=== PATIENT | male | born 1950 | race Caucasian/White ===

== ENCOUNTER → 2018-03-26 11:00 | Outpatient (CLI) | payer OTHER, SELFPAY | PROVIDERS: PCP Family Medicine; Visit Provider Urology | DX: L72.3 Sebaceous cyst (principal); I10 Essential (primary) hypertension | CPT/HCPCS: 99213 ==

== ENCOUNTER 2018-04-16 08:26 | Day surgery (SDC) | payer OTHER, SELFPAY ==
[2018-04-16 08:33] VITALS: BP 144/74; PULSE 72; RESP 16; TEMP 36; O2SAT 99
[2018-04-16] MEDS: Lactated Ringers 1,000 ML 400 ML IV (10:05)
[2018-04-16] MEDS: Lidocaine 1% Pres-Free 5 ML VIAL (10:18)
--- NOTE | 2018-04-16 10:23 | SOFT_PTH ---
PATIENT: Deng Pandya LOC: [facility] U#:[id number] AGE/SX: 68/M ROOM: RE04/16/[address]: Champ Givens MD : 1950 BED: DIS: 04/16/2018 SPEC #: [id number] RECD: 04/16/18 12:23 STATUS: TAHIRA REQ #: [id number] DAVID: 04/16/18 10:[address]: Champ Givens DEPT: Surgical Specimen RECD BY: Julia Jaimes ENTERED: 04/16/18 12:25 SP TYPE: SOFT OTHR DR: Jax Antony Tissues: 1 - SOFT TISSUE [facility] [place] [facility] [place] Procedures: GROSS AND MICRO LEVEL 3 Comments: [id number]
[2018-04-16 10:38] VITALS: BP 143/86; PULSE 79; RESP 16; TEMP 35.2; O2SAT 99
[2018-04-16 11:04] VITALS: BP 156/82; PULSE 74; RESP 16; TEMP 35.5; O2SAT 98
--- NOTE | 2018-04-16 13:10 | ROE_ITS ---
REPORT OF OPERATIVE PROCEDURE DATE OF PROCEDURE April 16, 2018 PREOPERATIVE DIAGNOSIS Sebaceous cyst on the scrotum. POSTOPERATIVE DIAGNOSIS Sebaceous cyst on the scrotum. PROCEDURE Excision of sebaceous cyst on scrotum. SURGEON Champ Givens M.D. ANESTHESIA MAC with local. COMPLICATIONS None. HISTORY This is a 68-year-old gentleman who has a history of a painless mass on the right hemiscrotum. On exa mination, the mass is mobile and whitish in color. It is clinically suspicious for a sebaceous cyst. He is bothered by this lesion and requests excision. OPERATIVE REPORT The patient was brought to the Operating Room on April 16, 2018. He was placed in the supine positio n. He was given Monitored Anesthesia Care. His genitalia was then prepped and draped. A perilesional field block was performed using 1% Xylocaine without epinephrine. A circumferential in cision was made around the visible lesion. A plane was developed completely around the lesion and it was removed in its entirety. We performed the dissection using both sharp and blunt dissection with the Metzenbaum scissors. The lesion was then sent to pathology for permanent section. The base of the lesion was cauterized us ing a handheld Bovie. The skin edges were reapproximated with simple interrupted 4-0 Chromic sutures. Dermabond was applied overtop of the suture line. The patient tolerated this procedure well with no complications. There was minimal blood loss. He was taken to the outpatient care area in stable condition.
== END 2018-04-16 11:40 | disposition home or self-care (01) ==
PROVIDERS: PCP Family Medicine; Visit Provider Urology
DX: L72.3 Sebaceous cyst (principal); I10 Essential (primary) hypertension
CPT/HCPCS: 11422; 88304; 88305; J0690

== ENCOUNTER → 2018-05-08 09:24 | Outpatient (BNVA) | payer OTHER, SELFPAY | PROVIDERS: PCP Family Medicine; Visit Provider Urology | DX: L72.3 Sebaceous cyst (principal); I10 Essential (primary) hypertension; Z48.816 Encounter for surgical aftercare following surgery on the genitourinary system | CPT/HCPCS: 99212 ==

== ENCOUNTER 2019-02-05 01:17 | Outpatient (CLI) | payer OTHER, SELFPAY ==
--- NOTE | 2019-02-05 14:00 | DI.CTLCSR_ITS ---
SYMPTOMS/DIAGNOSIS: TOBACCO ABUSE, F17.[address] FOR LUNG CANCER SCREENING: There are no prior comparison exams. The heart size is normal. Aortic calcification and coronary artery calcifications are seen. No pleural or pericardial effusions or adenopathy are present. Emphysematous changes are noted, greatest in the right upper lobe. There are a few tiny scattered calcifications consistent with granulomas. No suspicious pulmonary nodules are identified. IMPRESSION: Negative. Continued annual low dose screening CT is recommended. Lung-RAD Category: 1- Negative Lung- RAD Management of Findings: Continue annual LDCT screening in 12 months
== END 2019-02-05 01:37 ==
PROVIDERS: PCP Family Medicine; Visit Provider Family Medicine
DX: Z12.2 Encounter for screening for malignant neoplasm of respiratory organs (principal); F17.200 Nicotine dependence, unspecified, uncomplicated; J98.4 Other disorders of lung
CPT/HCPCS: G0297

== ENCOUNTER → 2019-05-24 09:25 | Outpatient (BNVA) | payer MEDICARE, OTHER, SELFPAY | PROVIDERS: PCP Family Medicine; Referring Provider Family Medicine; Visit Provider Physical Therapy Assistant | DX: Z12.11 Encounter for screening for malignant neoplasm of colon (principal); Z86.010 Personal history of colon polyps; I10 Essential (primary) hypertension ==

== ENCOUNTER 2019-06-21 11:25 | Day surgery (SDC) | payer OTHER, SELFPAY ==
--- NOTE | 2019-06-21 07:12 | W.COLOREPORT ---
Date of service: 06/21/19 Time of Service: 12:32 Colonoscopy Report Date of procedure: 06/21/19 Pre-op diagnosis general: Hx of colon polyps Post-op diagnosis procedure note: other (Colorectal polyps and diverticulosis) Procedure: Colonoscopy with polypectomy Surgeon: Luana Ledesma Anesthesia proc note operative: other (general/ ASA 2/Donal Salamanca CRNA) Estimated blood loss (mL): 3 Pathology: other (cecal polyp, ascending polyps x2 and sigmoid polyp x3) Complications: None Disposition: same day Indications: Mr. Pandya is a pleasant 69 year old male who was seen in the office for a follow-up colonoscopy. 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 Risks, benefits and complications have been reviewed. Complications include but are not limited to bleeding, pain, perforation, missed small lesion/polyp, sore throat, aspiration and adverse reaction to the medications. Questions were entertained and answered to their satisfaction and they wished to proceed. No guarantees were given or implied. Prep: Miralax/Dulcolax Procedure Start Time: 12:32 Procedure End Time: 13:18 Retraction Time: 37 minutes Findings: multiple small sessile polyps sigmoid diverticulosis Procedure Description: After informed consent was obtained the patient was taken to the procedure room and placed in a left decubitous position. Monitors were applied and a time out was done. The patients name, date of , procedure, allergies to medications and metal in their body was reviewed. The patient was then sedated. Once sedated and comfortable a rectal exam was done. External exam was normal. Internal exam revealed a normal sphincter tone and no palpable masses. The prostate felt smooth. The scope was then introduced and retro-flexed. No internal hemorrhoids, masses or polyps were identified. The scope was then advanced to the cecum without difficulty. The TI and appendiceal orifice were identified. The prep was adequate. The scope was then slowly retracted over 37 minutes back into the rectum. Polyps were removed with cold forceps in the cecum, ascending colon x2 and sigmoid colon x3. There was mild diverticulosis noted in the sigmoid colon as well. The scope was removed and the patient was woken up and taken back to Same day surgery in stable condition. The patient tolerated the procedure well and there were no immediate complications. Follow up: The patient should follow up in 3-5 years unless they develop changes in bowel habits or other new gastrointestinal complaints.
--- NOTE | 2019-06-21 07:13 | W.PM.DSUDISC ---
Discharge Plan Disposition Patient Disposition: HOME Condition: Good Discharge Details Reason For Visit: Colonoscopy/ Hx of polyps Attending Provider: Luana Ledesma Primary Care Provider: Jax Antony Home Meds and New Rx's Prescriptions: Continued Atorvastatin Calcium 10 MG tablet 10 mg PO DAILY RF: 0 amlodipine 10 mg tablet 5 mg PO DAILY RF: 0 Discontinued polyethylene glycol 3350 17 gram/dose powder 238 g PO ONCE Qty: 238 RF: 0 bisacodyl [Dulcolax (bisacodyl)] 5 mg tablet,delayed release (DR/EC) 5 mg PO ONCE Qty: 4 RF: 0 No Action aspirin [Aspirin Low Dose] 81 mg Tablet,Delayed Release (Dr/Ec) 81 mg PO DAILY RF: 0 Discharge Instructions Instructions: Colonoscopy (DC), Diverticulosis (DC), Colorectal Polyps (DC) Additional Instructions: Findings: polyps x6 Diverticulosis Follow up: 3-5 years Please call if you develop: fevers >101.5 Nausea or Vomiting Abdominal pain that is not transient DAY SURGERY UNIT POST ENDOSCOPY INSTRUCTIONS 1. Because there will be medication in your system for the next 24 hours, you may feel a little sleepy. Your coordination will be affected. Therefore: a. Do not drive or operate dangerous equipment for 24 hours. b. Do not drink alcohol beverages for 24 hours (not even beer). c. Plan to go home and rest for the day. 2. Generally there are no restrictions on your activity after a day or so has gone by, but you may feel a bit fatigued for a few days. 3 After you arrive home you may have a light meal and return to a normal diet as you can tolerate it without feeling sick to your stomach. 4. After surgery, you may feel pain or discomfort. This should be only transient, but if it persists please contact your doctor. 5. If there are any questions regarding the findings of your procedure, please feel free to contact your doctor. 6. If you are unable to contact your doctor with a problem, contact the hospital at [phone]. 7. Continue all your regular medications unless directed otherwise. I understand the above instructions and have no questions. Signature of Patient or Responsible Adult Escort Date/Time Name of Responsible Adult Escort Signature of Nurse Date/Time Activity:: Activity as Tolerated Diet:: As Tolerated Discharge Orders Discharge Orders: Discharge Order (Routine); Ordered 06/21/19 Ordered By: Luana Ledesma DS: Diagnosis Discharge Diagnosis (1) S/P colonoscopy: Status: Acute (2) Diverticulosis: Status: Acute (3) Colorectal polyps: Status: Acute
[2019-06-21 11:54] VITALS: BP 156/83; PULSE 88; RESP 18; TEMP 36.3; O2SAT 99
[2019-06-21] MEDS: Lactated Ringers 1,000 ML 80 ML IV (12:04)
--- NOTE | 2019-06-21 12:45 | BOWEL_PTH ---
PATIENT: Deng Pandya LOC: [facility] U#:[id number] AGE/SX: 69/M ROOM: RE06/21/[address]: Luana Ledesma MD : 1950 BED: DIS: 06/21/2019 SPEC #: [id number] RECD: 06/21/19 15:47 STATUS: TAHIRA REQ #: [id number] DAVID: 06/21/19 12:[address]: Luana Ledesma DEPT: Surgical Specimen RECD BY: Rosalind Merrill ENTERED: 06/21/19 15:48 SP TYPE: Bowel OTHR DR: Jax Antony Tissues: 1 - BIOPSY BOWEL 2 - BIOPSY BOWEL 3 - BIOPSY BOWEL Procedures: GROSS AND MICRO LEVEL 4 Comments: [id number]
[2019-06-21 14:00] VITALS: BP 142/81; PULSE 75; RESP 17; TEMP 36.3; O2SAT 100
== END 2019-06-21 14:20 | disposition home or self-care (01) ==
LOC: SUR 11:26
PROVIDERS: PCP Family Medicine; Visit Provider Surgery
PROC: 0DJD8ZZ Inspection of Lower Intestinal Tract, Via Natural or Artificial Opening Endoscopic (ICD-10-PCS; CPT 45378; principal; 2019-06-21 13:30)
DX: Z12.11 Encounter for screening for malignant neoplasm of colon (principal); Z86.010 Personal history of colon polyps; D12.0 Benign neoplasm of cecum; D12.2 Benign neoplasm of ascending colon; D12.5 Benign neoplasm of sigmoid colon; K57.30 Diverticulosis of large intestine without perforation or abscess without bleeding; I10 Essential (primary) hypertension
CPT/HCPCS: 45380; 88305

== ENCOUNTER 2020-02-08 10:45 | Outpatient (REF) | payer OTHER, SELFPAY ==
[2020-02-08 16:05] LABS: HCT 45.8 % (40.0-50.0); HGB 15.5 g/dL (13.5-17.5); Mean Corp. HGB Concentration 33.8 g/dL (32.0-36.0); Mean Corpuscular Hemoglobin 34.8 pg (27.0-33.0); Mean Corpuscular Volume 102.9 fL (80-95); Platelet Count 255 x1000/uL (130-400); RBC 4.45 m/cumm (4.50-6.00); RBC Distribution Width 12.7 % (11.8-14.1); White Blood Cell Count 9.85 k/cumm (4.4-10.8)
[2020-02-08 16:40] LABS: ALT 25 U/L (16-63); AST 38 U/L (15-37); Albumin 4.1 g/dL (3.4-5.0); Alkaline Phosphatase 99 U/L (46-116); Anion Gap 10.7 mmol/L (3-11); BUN 13 mg/dL (7-18); Bilirubin, Total 0.4 mg/dL (0.2-1.0); CO2 24.3 mmol/L (21.0-32.0); CREATININE 1.02 mg/dL (0.70-1.30); Calcium 9.1 mg/dL (8.5-10.1); Chloride 105 mmol/L (98-107); Glucose 91 mg/dL (74-106); Potassium 4.6 mmol/L (3.5-5.1); Sodium 140 mmol/L (136-145); Total Protein 7.8 g/dL (6.4-8.2)
== END 2020-02-08 11:05 ==
LOC: NCHCN 10:45
PROVIDERS: PCP Family Medicine; Visit Provider Family Medicine
DX: K74.60 Unspecified cirrhosis of liver (principal)
CPT/HCPCS: 80053; 85027

== ENCOUNTER 2020-02-10 01:57 | Outpatient (CLI) | payer OTHER, SELFPAY ==
--- NOTE | 2020-02-10 | DI.US_ITS ---
EXAM: US ABDOMEN CLINICAL HISTORY: HCC SCREENING, CIRRHOSIS OF LIVER, K74.60 TECHNIQUE: Ultrasound performed using standard protocol. COMPARISON: US AAA SCREENING from 03/27/2017 FINDINGS: The hepatic echotexture is noted to be mildly coarse, consistent with the patient's diagnosis of cirr hosis. No gross hepatomegaly or splenomegaly seen. No focal hepatic lesion identified. There are gallbladder polyps, no evidence cholelithiasis. Gallbladder wall thickness is within renetta l limits. Pancreas appears intact. Kidneys are unremarkable in appearance with no evidence of hydronephrosis or nephrolithiasis. IMPRESSION: No evidence of acute process. No focal hepatic lesion identified in a patient with reported hepatic cirrhosis. DATA REPOSITORY:
== END 2020-02-10 02:17 ==
PROVIDERS: PCP Family Medicine; Visit Provider Family Medicine
DX: K74.60 Unspecified cirrhosis of liver (principal); K82.4 Cholesterolosis of gallbladder
CPT/HCPCS: 76700

== ENCOUNTER → 2020-04-07 08:50 | Outpatient (BNVA) | payer OTHER, SELFPAY | PROVIDERS: PCP Family Medicine; Referring Provider Family Medicine; Visit Provider Physical Therapy Assistant | DX: Z12.11 Encounter for screening for malignant neoplasm of colon (principal); Z86.010 Personal history of colon polyps ==

== ENCOUNTER 2020-04-20 08:43 | Day surgery (SDC) | payer OTHER, SELFPAY ==
[2020-04-20 09:06] VITALS: BP 141/81; PULSE 90; RESP 16; TEMP 36.6; O2SAT 98
--- NOTE | 2020-04-20 09:26 | W.COLOREPORT ---
Date of service: 04/20/20 Time of Service: 09:26 Colonoscopy Report Date of procedure: 04/20/20 Pre-op diagnosis general: A. polyps Post-op diagnosis procedure note: other Procedure: CE. cold polypectomy x 3 hot snare x1 Surgeon: Natalie Dempsey Anesthesia proc note operative: MAC Estimated blood loss (mL): 1 Pathology: other Complications: None Disposition: same day Prep: Miralax/Dulcolax Retraction Time: 15 mins Procedure Description: After informed consent was obtained the patient was taken to the procedure room and placed in a left decubitous position. Monitors were applied and a time out was done. The patients name, date of , procedure, allergies to medications and metal in their body was reviewed. The patient was then sedated. Once sedated and comfortable a rectal exam was done. External exam was normal. Internal exam revealed a normal sphincter tone and no palpable masses. The prostate nl. The scope was then introduced and retrofelexed. Grade I internal hemorrhoids were identified. The scope was then advanced to the cecum w/out difficulty. The TI and appendiceal orifice were identified. The prep was good. The scope was then slowly retracted over 15 minutes back into the rectum. Polyps were removed at 70 cm with a cold biting forcep. 40 cm with a cold biting forcep. The rectum with cold biting forcep. These are all less than 5 mm. There is 1 cm polyp at 20 cm and this is removed with a hot snare. This polyp was on a long stalk. Last colonoscopy was all specimens are retrieved and no bleeding is noted. There is moderate diverticular disease confined to the sigmoid colon. There are no signs of active bleeding or infection at this time. Mucosa is otherwise pink and healthy. The scope was removed and the patient was woken up and taken back to Same day surgery in stable condition. The patient tolerated the procedure well and there were no immediate complications. Follow up: The patient should follow up in 5 years -path pending, unless they develop changes in bowel habits or other new gastrointestinal complaints.
[2020-04-20] MEDS: Lactated Ringers 1,000 ML 80 ML IV (09:28)
--- NOTE | 2020-04-20 11:39 | BOWEL_PTH ---
PATIENT: Deng Pandya LOC: [facility] U#:[id number] AGE/SX: 70/M ROOM: RE04/20/[address]: Natalie Dempsey : 1950 BED: DIS: 04/20/2020 SPEC #: [id number] RECD: 04/20/20 12:29 STATUS: TAHIRA REQ #: [id number] DAVID: 04/20/20 11:[address]: Natalie Dempsey DEPT: Surgical Specimen RECD BY: Vivian Rowley ENTERED: 04/20/20 12:33 SP TYPE: Bowel OTHR DR: Jax Antony Tissues: 1 - BIOPSY BOWEL 2 - BIOPSY BOWEL 3 - BIOPSY BOWEL 4 - BIOPSY BOWEL Procedures: GROSS AND MICRO LEVEL 4 Comments: [id number]
[2020-04-20 12:32] VITALS: BP 129/58; PULSE 81; RESP 20; TEMP 36.7; O2SAT 96
--- NOTE | 2020-04-20 12:57 | PDOC.DSDIS_ITS ---
Discharge Plan Disposition Patient Disposition: HOME Condition: Good Discharge Details Reason For Visit: colon scope Attending Provider: Natalie Dempsey Primary Care Provider: Jax Antony Home Meds and New Rx's Prescriptions: Discontinued polyethylene glycol 3350 17 gram/dose powder 238 g PO ONCE Qty: 238 RF: 0 bisacodyl [Dulcolax (bisacodyl)] 5 mg tablet,delayed release (DR/EC) 5 mg PO ONCE Qty: 4 RF: 0 No Action losartan-hydrochlorothiazide 50-12.5 mg tablet 1 tab PO DAILY RF: 0 Discharge Instructions Additional Instructions: Findings: diverticula-moderate in sigmoid colon x4 polyps Follow up: We will send a letter with results pathology. Repeat colonoscopy in 3 to 5 years. Please call if you develop: fevers >101.5 Nausea or Vomiting Abdominal pain that is not transient DAY SURGERY UNIT POST COLONOSCOPY INSTRUCTIONS 1. Because there will be medication in your system for the next 24 hours, you may feel a little sleepy. Your coordination will be affected. Therefore: a. Do not drive or operate dangerous equipment for 24 hours. b. Do not drink alcohol beverages for 24 hours (not even beer). c. Plan to go home and rest for the day. 2. Generally there are no restrictions on your activity after a day or so has gone by, but you may feel a bit fatigued for a few days. 3 After you arrive home you may have a light meal and return to a normal diet as you can tolerate it without feeling sick to your stomach. 4. After surgery, you may feel pain or discomfort. This should be only transient, but if it persists please contact your doctor. 5. If there are any questions regarding the findings of your procedure, please feel free to contact your doctor. 6. If you are unable to contact your doctor with a problem, contact the hospital at [phone]. 7. Continue all your regular medications unless directed otherwise. I understand the above instructions and have no questions. Signature of Patient or Responsible Adult Escort Date/Time Name of Responsible Adult Escort Signature of Nurse Date/Time DIVERTICULAR DISEASE OVERVIEW ? A diverticulum is a pouch-like structure that can form through points of weakness in the muscular wall of the colon (ie, at points where blood vessels pass through the wall). Diverticulosis affects men and women equally. The risk of diverticular disease increases with age. It occurs throughout the world but is seen more commonly in developed countries. WHAT IS DIVERTICULAR DISEASE? Diverticulosis ? Diverticulosis merely describes the presence of diverticula. Diverticulosis is often found during a test done for other reasons, such as flexible sigmoidoscopy, colonoscopy, or barium enema. Most people with diverticulosis have no symptoms and will remain symptom free for the rest of their lives. A person with diverticulosis may have diverticulitis, or diverticular bleeding. Diverticulitis ? Inflammation of a diverticulum (diverticulitis) occurs when there is thinning and breakdown of the diverticular wall. This may be caused by increased pressure within the colon or by hardened particles of stool, which can become lodged within the diverticulum. The symptoms of diverticulitis depend upon the degree of inflammation present. The most common symptom is pain in the left lower abdomen. Other symptoms can include nausea and vomiting, constipation, diarrhea, and urinary symptoms such as pain or burning when urinating or the frequent need to urinate. Diverticulitis is divided into simple and complicated forms. ?Simple diverticulitis, which accounts for 75 percent of cases, is not associated with complications and typically responds to medical treatment without surgery. ?Complicated diverticulitis occurs in 25 percent of cases and usually requires surgery. Complications associated with diverticulitis can include the following: ?Abscess ? a localized collection of pus ?Fistula ? an abnormal tract between two areas that are not normally connected (eg, bowel and bladder) ?Obstruction ? a blockage of the colon ?Peritonitis ? infection involving the space around the abdominal organ ?Sepsis ? overwhelming body-wide infection that can lead to failure of multiple organs Diverticular bleeding ? Diverticular bleeding occurs when a small artery located within a diverticulum is eroded and bleeds into the colon. Diverticular bleeding usually causes painless bleeding from the rectum. In approximately 50 percent of cases, the person will see maroon or bright red blood with bowel movements. Is bleeding with a bowel movement normal? ? It is not normal to see blood in a bowel movement; this can be a sign of several conditions, most of which are not serious (eg, hemorrhoids) but some of which are serious and require immediate treatment. Anyone who sees blood after a bowel movement should consult with their healthcare provider to determine if further testing or evaluation is needed. DIVERTICULOSIS AND DIVERTICULITIS DIAGNOSIS ? Diverticulosis is often found during tests performed for other reasons. ?Barium enema ? This is an x-ray study that uses barium in an enema to view the outline of the lower intestinal tract. This is an older test and has been largely replaced by computed tomography (CT) scan. ?Flexible sigmoidoscopy ? This is an examination of the inside of the sigmoid colon with a thin, flexible tube that contains a camera. ?Colonoscopy ? This is an examination of the inside of the entire colon. ?CT scan ? A CT scan is often used to diagnose diverticulitis and its complications. If diverticulitis (not just diverticulosis) is suspected, the above three tests should not be used because of the risk of perforation. TREATMENT Diverticulosis ? People with diverticulosis who do not have symptoms do not require treatment. However, most clinicians recommend increasing fiber in the diet, which can help to bulk the stools and possibly prevent the development of new diverticula, diverticulitis, or diverticular bleeding. Fiber is not proven to prevent these conditions in all patients but may help to control recurrent episodes in some. Increase fiber ? Fruits and vegetables are a good source of fiber. Fiber content of packaged foods can be calculated by reading the nutrition label. Seeds and nuts ? Patients with diverticular disease have historically been advised to avoid whole pieces of fiber (such as seeds, corn, and nuts) because of concern that these foods could cause an episode of diverticulitis. However, this belief is completely unproven. We do not suggest that patients with diverticulosis avoid seeds, corn, or nuts. Diverticulitis ? Treatment of diverticulitis depends upon how severe your symp toms are. Home treatment ? If you have mild symptoms of diverticulitis (mild abdominal pain, usually left lower abdomen), you can be treated at home with a clear liquid diet and oral antibiotics. However, if you develop one or more of the following signs or symptoms, you should seek immediate medical attention: ?Temperature >100.1?F (38?C) ?Worsening or severe abdominal pain ?An inability to tolerate fluids Hospital treatment ? If you have moderate to severe symptoms, you may be hospitalized for treatment. During this time, you are not allowed to eat or drink; antibiotics and fluids are given into a vein. If you develop an abscess of the colon, you may require drainage of the abscess (usually performed by placing a drainage tube across the abdominal wall) or by surgically opening the affected area. Surgery ? If you develop a generalized infection in the abdomen (peritonitis), you will usually require an emergency operation. A two-part operation may be necessary in some cases. ?The first operation involves removal of the diseased colon and creation of a colostomy. A colostomy is an opening between the colon and the skin, where a bag is attached to collect waste from the intestine. The lower end of the colon is temporarily sewed closed to allow it to heal. ?Approximately three to six months later, a second operation is performed to reconnect the two parts of the colon and close the opening in the skin. You are then able to empty your bowels through the rectum. Sometimes patients require up to a year to recover from the first operation, depending on how sick they were. In non-emergency situations, the diseased area of the colon can be removed and the two ends of the colon can be reconnected in one operation, without the need for a colostomy. Surgery versus medical therapy ? An operation to remove the diseased area of the colon may be necessary if you do not improve with medical therapy. After an episode of uncomplicated diverticulitis, elective surgery is generally not required as the risk of another attack or requiring emergency surgery is low. However, patients with persistent symptoms attributable to diverticulitis, a history of complicated diverticulitis, or a compromised immune system should be evaluated for possible surgery to prevent another attack. In such patients, another attack has been associated with a higher risk of complications or . Of course, the decision will also depend in part upon your other medical conditions and ability to undergo surgery. In many cases, an elective operation can be performed laparoscopically, using small incisions, rather than the typical vertical (up and down) abdominal incision. Laparoscopic surgery usually allows you to recover more quickly and shortens the hospital stay. After diverticulitis resolves ? After an episode of diverticulitis resolves, if you have not had a recent colonoscopy, the entire length of the colon should be evaluated to determine the extent of disease and to rule out the presence of abnormal lesions such as polyps or cancer. Recommended tests include colonoscopy, barium enema and sigmoidoscopy, or CT colonography. Diverticular bleeding ? Most cases of diverticular bleeding resolve on their own. However, some people will need further testing or treatment to stop bleeding, which may include a colonoscopy, angiography (a treatment that blocks off the bleeding artery), bleeding scan, or surgery. DIVERTICULAR DISEASE PROGNOSIS Diverticulosis ? Over time, diverticulosis may cause no problems or it may cause episodes of bleeding and/or diverticulitis. Approximately 15 to 25 percent of people with diverticulosis will develop diverticulitis, while 5 to 15 percent will develop diverticular bleeding. Diverticulitis ? Approximately 85 percent of people with uncomplicated dive rticulitis will respond to medical treatment, while approximately 15 percent of patients will need an operation. After successful treatment for a first attack of diverticulitis, one-third of patients will remain asymptomatic, one-third will have episodic cramps without diverticulitis, and one-third will go on to have a second attack of diverticulitis. The prognosis tends to remain similar following a second attack of diverticulitis. Only 10 percent of people remain symptom-free after a second attack. Subsequent attacks tend to be of similar severity, not increasing in severity as previously believed. High Fiber Diet What is Dietary Fiber? All fiber comes from plants, bushes, ayan or trees. Of course, the ones that we eat provide us with fruits, vegetables and grains. There are many different types of fiber but the three that are most important to the health of the body are: Insoluble Fiber This fiber does not dissolve in water, nor is it fermented by the bacteria residing in the colon. Rather, it retains water and in so doing, helps to promote a larger, bulkier and more regular bowel activity. This, in turn, may be important in preventing disorder such as diverticulosis and hemorrhoids, and in sweeping out certain toxins and cancer causing carcinogens. Sources of insoluble fiber are: ? whole grain wheat and other whole grains ? corn bran, including popcorn, unflavored and unsweetened ? nuts and seeds ? potatoes and the skins from most fruits from trees such as apples, bananas and avocados ? many green vegetables such as green beans, zucchini, celery and cauliflower ? some fruit plants such as tomatoes and kiwi Soluble Fiber These fibers are fermented or used by the colon bacteria as a food source or nourishment. When these good bacteria grow and thrive, many health benefits occur in both the colon and the body. Soluble fiber is present in some degree in most edible plant foods, but the ones with the most soluble fiber include: ? legumes such as peas and most beans, including soybeans ? oats, rye and barley ? many fruits such as berries, plums, apples bananas and pears ? certain vegetables such as broccoli and carrots ? most root vegetables ? psyllium husk supplement products Prebiotic Soluble Fiber These are relatively newly discovered soluble plant fibers. The technical name for this fiber is inulin or fructan. When these soluble fibers are fermented by the good colon bacteria, some further significant health benefits have been shown to occur by research in many medical centers. These soluble prebiotic fibers occur in significant amounts in: ? asparagus ? yams ? onions ? garlic ? bananas ? leeks ? agave ? chicory and other root vegetables such as [place] artichokes ? wheat, rye and barley (smaller amounts) Benefits of a High Fiber Diet The health benefits of a high fiber diet, consumed on a regular basis and reaching recommended amounts (below), are now fairly well-defined. There are some additional benefits in the early research stage with the prebiotic soluble fibers. What is now known regarding a high fiber diet include: Bowel Regularity A high fiber diet promotes regularity with a softer, bulkier and regular stool pattern. This decreases the chance of hemorrhoids, diverticulosis and perhaps colon cancer. Cholesterol and Reduced Triglycerides The soluble fibers are the ones that will reduce cholesterol levels when used on a regular basis. Psyllium husk and prebiotic soluble fiber will also reduce cholesterol. They may also reduce the incidence of coronary heart disease. Oats, flax seeds and legumes or beans are the recommended fibers. Colon Polyps and Cancer It is still not certain if a high fiber diet helps prevent colon cancer. Considerable research suggests that this may occur. Certainly it makes sense to increase regularity and so speed the movement of cancer causing carcinogens through the bowel. In addition, reducing a heavy meat diet reduces the bile flow from the liver in a favorable way. This, too, reduces the amount of carcinogens that reach and are manufactured in the colon. Finally, a high fiber diet, including prebiotic soluble fiber, increases the integrity and health of the wall of the colon. The risk of cancer may be reduced. Colon Wall Integrity A high fiber diet changes the bacterial makeup of the colon toward a more favorable balance. For instance, it is known that those people with obesity, diabetes type 2 and inflammatory bowel disease have a predominance of bad bacteria in the colon. This, in turn, may render the bowel wall weak and allow bacteria and, indeed, even toxins to seep through. A high fiber diet with a modest reduction in animal and meat products may return the bacterial makeup to a more positive balance. This, in particular, has been seen when the soluble fiber prebiotics are added to the diet. Blood Sugar Soluble fiber such as in legumes (beans), oats and in prebiotic fibers slows the absorption of blood sugar and so helps regulate the sugar in the blood. In soluble fiber on a regular basis is associated with reduced risk of type 2 diabetes. Weight Loss High fiber diets are more filling and give a sense of fullness sooner than an animal and meat based diet does. In addition, the soluble prebiotic fibers have been shown to turn off the hunger hormones produced in the wall of the gut and to increase the hormones that give a sense of fullness. Those hormones are made in the wall of the gut. New medical research has shown that the bacterial makeup in the colon in overweight people is abnormal to the extent that they manufacture and absorb almost twice the number of calories through the colon wall as do normals. Prebiotic fibers (below) will help change this hormonal balancein a favorable way. Bacteria and the Function of the Colon The colon finishes the digestive process. Hopefully, the waste products move through in a nice regular manner. Insoluble fibers help this process by retaining water and so producing a bulkier, softer stool, which is easy to pass. The additional role of the colon is to provide a home for an enormous number of micro-organisms, mostly bacteria. Recent research has shown that there are over 1,000 species of bacteria with a total bacterial count ten times the number of cells in the body. These bacteria play a major role in keeping the colon wall itself healthy. In addition, these good bacteria produce a very strong immune system for the body. They significantly increase calcium absorption and bone density. They provide other documented benefits. It is the soluble fibers in the diet that are so effective in stimulating the growth of good colon bacteria. How Much is Enough? The amount of fiber in food is measured in grams. National nutritional authorities recommend the following amounts of dietary fiber daily. Under Age 50 Over Age 50 Men 38 grams 30 grams Women 25 grams 21 grams For a week or so, it is best to tally the amount of fiber you are consuming. Boxed and packaged foods will have the amount of fiber per serving on the nutrition label. Which Fibers and Which Foods are Best? As noted, healthy fiber is only found in plants. The three major categories are whole grains, fruits and vegetables. Whole Grains Wheat, oats, barley, wild or brown rice, amaranth, buckwheat, bulgur, corn, millet, quinoa, rye, sorghum, teff and triticals. By far, wheat, oats and wild or brown rice are most common. Always buy whole grain products. White bread, baked goods and rolls almost always are made from wheat flour. Wheat flour is white because most of the fiber, vitamins and other nutrients have been removed. Try not buy enriched grains. What this means is that simple white flour has had vitamins added to it by the gas plumber. The word, enriched, implies a good and healthy product. On the contrary, enriched means that most of the fiber has been removed and a few vitamins added. Fruits Fruits come from trees such as apple and pear or from bushes or ayan. You should eat a wide variety of fruits, preferably with every meal. In many cases, the skin of a fruit such as apple will contain much of the insoluble fiber while the pulp contains most of the soluble fiber. To the extent possible, buy organic fruits as these will have little or no pesticides. Always wash fruit. Vegetables Eat a wide variety of vegetables. They should be a mainstay of lunch and dinners. Frozen vegetables retain as much nutrition and fiber as fresh vegetables. As with fruit, try to buy organic to reduce any residual pesticide ingestion. Wash fresh vegetables thoroughly. Cruciferous vegetables such as broccoli, [place] sprouts and cauliflower contain certain chemicals such as sulforaphane. This substance has very strong anti-cancer properties and should be eaten frequently. Legumes, Beans, Peas and Soybeans These vegetables have plenty of soluble fiber and should be part of a varied vegetable intake. Beans, in particular, contain a certain type of fiber that may lead to harmless gas or bloating. Nuts and Seeds These are rich sources of fiber and are a good substitute for sweets such as candies and baked sweet goods. While nuts and seeds are rich in fiber, they also contain vegetable fat and so can and do add calories. Read the Labels As noted, fresh and frozen foods are usually better. They have good nutrition and few, if any, chemicals added to them. When buying packaged foods and, in particular grains, look for three things: ? The first word on the label should be whole, such as whole wheat or whole grain. ? Check out the calories and the amount of fiber in a serving. ? How many and what other additives or chemicals are added. Fewer is always better. Do you know what each additive does? Some are added not for the benefit of the weight control lecturer but rather for manufacturers. These could and do include sugar, artificial flavor, chemicals to prevent oxidation and spoilage, emulsifiers to blend the product. You have to be a customer relations assistant. Fiber Facts, Nuggets and Pearls ? For breakfast you can easily get the day started well by using a high fiber, whole grain cereal. Check the labels. Add fruit such as blueberries and bananas. If you are an egg eater, use whole wheat or grain toast. Adding wheat germ gives you a good fiber kick. ? Always use whole grain or wheat with rolls and sandwiches. Does your fast food store not have them? Perhaps you look elsewhere. Eating an occasional black dias or veggie burger provides variety. ? Snacks should consist of fruit and/or nuts. While nuts are loaded with fiber, they are an energy rich food, meaning they have a lot of calories in a small packet. ? Fruit juices should contain pulp. Clear juices such as clear orange, pear or apple juice contain little fiber and have a lot of fructose. Prune juice is usually high in fiber. ? Homemade soups ? adding fresh or frozen vegetables to a chicken or vegetable stock is a good way to start homemade soup. ? Salads ? adding cooked and then chilled vegetables provide great flavoring to almost any salad. Remember, a de la cruz salad has lots of cooked corn in it. Small slices of apples or oranges and nuts such as chopped walnuts or sliced almonds always adds taste, variety and fiber to almost any salad. ? Fruit ? Try to eat fruit of some type with almost every meal. ? Rethink how you place the various foods on your dinner plate. Reducing the portions of the meat or animal food portion to the side with equal or more portions of vegetables, legumes and fruits portion always allows for more fiber. There was never anything magic about making the meat or animal food portion the main part of the dinner plate. Eating from smaller plates can, over time, trick your mind and assisted habit of using a dinner plate. Again, there is nothing magic in an 11, 12, or 13 inch dinner plate. Fiber Supplements There are a variety of fiber supplements available on the food or pharmacy shelves. Psyllium This soluble plant fiber has been used in [place] for over 2,000 years. It is a soluble fiber with mucilage in it. This acts to retain a lot of water and also is fermented by colon bacteria. When 7 grams a day are used, it does lower cholesterol. Metamucil in various forms is psyllium. Methyl Cellulose All the cellulose products come from finely ground wood chips which are then treated in a variety of ways such as boiling in acids. Methyl cellulose is an insoluble fiber which does dissolve in water. It is also an emulsifier, meaning it blends oils and water. Citrucel is methyl cellulose (MC). MC may not be appropriate for Crohn?s disease or ulcerative colitis as several medical studies have shown that certain emulsifiers dissolve the mucous lining of the colon in animals prone to Crohn?s disease. This then allows bacteria to invade the under lying tissue. Inulin Inulin is a soluble prebiotic fiber found in many foods and which are fermented mostly in the left side of the colon. It is available in a supplement as generic inulin and in Fiber Choice. Oligofructose FOS These are also prebiotic fibers. They are fermented very quickly in the right side of the colon. Prebiotin This product is a combination of oligofructose, which feeds the bacteria in the right side of the colon and inulin, which does the same in the left side of the colon. There seems to be a benefit for this particular formula based on medical research. Prebiotic Soluble Fiber These may be the healthiest of all the soluble fibers. They grow in many plants and have had a great deal of research done on them in the last 10-15 years. These fibers are found in asparagus, yams and other root vegetables such as chicory, garlic, onion, leeks and in smaller amounts in wheat. This research has shown the following: ? Increase in good and decrease in bad colon bacteria ? Increase calcium absorption and enhanced bone mass ? Enhanced immune system ? Appetite and weight control by changing the hormone appetite signals to the brain ? May decrease colon cancer incidence ? Reduce or correct a leaky colon Eating a wide variety of plant food up to the recommended amount will likely give you enough prebiotic fiber. Supplements such as Prebiotin can be added to the diet. Short Chain Fatty Acids (SCFA) Some rather remarkable research findings have shown that one of the benefits of ingesting a lot of soluble fiber, in particular the prebiotic ones, results in larger amounts of SCFAs in the colon. These SCFAs are made by the good bacteria in the colon such as Bifidobacter and Lactobacillus. These small molecules have been shown to do the following: ? Enhance the health and integrity of the colon wall ? Provide nourishment for the cells that actually line the colon ? Increases the acidity of the colon which is a very real health benefit ? Stabilize blood sugar for diabetics ? Reduce blood cholesterol and triglyceride ? Significantly enhance immunity ? May be a benefit for Crohn?s disease and ulcerative colitis patients Fiber and Gas Everyone has intestinal gas and that is a good thing. It means that bacteria, hopefully the good ones, are thriving. The normal amount of flatus passed each day depends on sex and what is eaten. The normal number of flatus is 10-20 times a day. When the bacteria that make intestinal gases are growing, it also means that other good bacteria are using the same fibers to grow and produce multiple health benefits, including the production of healthy short-chain fatty acids. These substances are produced quietly in the colon and produce many health-related outcomes. Soluble fiber should always be used in a gradual manner. If too much is consumed at any one time, then excess, but harmless, intestinal gas can occur. People with irritable bowel syndrome are particularly prone to bloating and mild cramping. In this instance, soluble fiber in the diet or supplement should be used in small doses and increased gradually. Finally, prebiotic fibers tend to cause the production of short-chain fatty acids which acidify the colon. This, in turn, reduces or stops the growth of bacteria that make the smelly hydrogen sulfide gases that produce noxious flatus. People who consume many vegetables with prebiotics or take a prebiotic fiber supplement often have non-odoriferous flatus. Fiber and Irritable Bowel Syndrome Irritable bowel syndrome (IBS) is one of the most common disorders of the lower digestive tract. The symptoms of IBS can be quite varied. They can be a mix of several symptoms such as constipation, diarrhea, crampy abdominal discomfort, bloating and gas. An attack of IBS can be triggered by emotional tension and anxiety, poor dietary habits and certain medications. It is now known that infections in the intestine can lead to long-term IBS symptoms. Increased amounts of fiber in the diet can help relieve the symptoms of irritable bowel syndrome by producing soft, bulky stools. This helps to normalize the time it takes for the stool to pass through the colon. Recent medical research with newer techniques has shown some surprising and dramatic findings for IBS patients. Specifically, there is a very significant and abnormal shift of bacteria from those that provide health benefits to those bad bacteria that we really do not want in the gut. The technical name for this bad group of bacteria is called Firmicutes. Along with this abnormal bacterial collection, there is a smoldering low-grade inflammation in the gut wall that may contribute to symptoms. The goal for IBS patients should be to gradually increase the soluble dietary fibers in the diet so as to promote the growth of good bacteria and so suppress the bad ones along with the associated inflammation. IBS patients need to be careful of the amount of soluble fiber they consume. The reason for this is that, while the good colon bacteria thrive on these fibers and produce health benefits, other gas-forming bacteria may generate excessive but harmless gas and subsequent bloating. Thus, soluble plant fibers or a dietary prebiotic supplement should be taken in small initial doses and then gradually increased to tolerance. Fiber and Colon Polyps/Cancer Colon cancer is a major health problem. This disease is most common in Western cultures. It is not seen very often in rural cultures where the diet is mostly plant based. Usually, colon cancer starts out as a colon polyp, a benign mushroom-shaped growth. In time it grows, and in some people it becomes cancerous. Colon cancer is usually always curable if polyps are removed when found or if surgery is performed at an early stage. It is now known that people can inherit the risk of developing colon cancer, but diet is important, too. As noted, there is a very low rate of colon cancer in residents of countries where grains are unprocessed and retain their fiber. It seems that in the Western world, cancer-containing agents (carcinogens) remain in contact with the colon wall for a longer time and in higher concentrations. So, a large bulky stool may act to dilute these carcinogens by moving them through the bowel more quickly. Less carcinogenic exposure to the colon may mean fewer colon polyps and less cancer. A very current review of the entire world?s literature on the effect of fiber on colon polyps and cancer prevention has shown rather clearly that for every 10 grams of fiber added to the diet, there is a 10% reduction in incidence of colon cancer. So the recommended 30 gram fiber diet would result in a 30% less chance of getting these tumors. There are also substances produced in the colon by the good bacteria that seem to retard certain pre-cancer factors from developing. They are called short- chain fatty acids (SCFA). See above for description of SCFAs. A high fiber diet increases these substances. So, the combination of dietary fiber and the production of short-chain fatty acids have a clear health benefit. Fiber and Diverticulosis Prolonged, vigorous contraction of the colon over a long period of time may result in diverticulosis. This increased pressure causes small and, eventually, larger ballooning pockets to form. These pockets by themselves cause no problem. However, sometimes they become infected (diverticulitis) or even break open (perforate) causing infection or inflammation within the abdomen (peritonitis). A high fiber diet increases the bulk in the stool and thereby reduces the pressure within the colon. By so doing, the formation of pockets may be reduced or possibly even stopped. In the past, many physicians were fearful that seeds as in tomatoes, nuts or berries were harmful and could get inside these pockets and rattle around, causing damage. We now know that this has never been the case and that these foods contain lots of fiber and are actually beneficial for diverticulosis pa tients. Certain bulking agents such as psyllium are traditional types of bulk producing supplements. Psyllium is a soluble fiber. Combining it with insoluble fiber as in wheat bran or corn bran (no gluten) can enhance this bulking effect even more. A product containing a prebiotic, psyllium and wheat bran is probably a very good combination for bowel regularity. Prebiotin Regularity/Diverticulosis is one such product. Inflammatory Bowel Disease (IBD) IBD means Crohn?s Disease (CD) or Ulcerative Colitis (UC). CD is an inflammation of the lower small bowel and/or the colon. Bacteria actually invade and cause inflammation in the entire wall of the intestine. UC, on the other hand, is an inflammation just of the lining of the colon. It usually starts in the rectum and left colon and may spread to the entire colon from there. It is now known that in both CD and UC that the bacterial make up is abnormal. This means that there are significantly more of the bad bacteria present than the good ones. These abnormal bacteria are called Firmicutes. Fiber and Crohn?s Disease There is now some information in the medical literature on what type of diet may be harmful and what may help Crohn?s Disease. A reduction in red meat is likely helpful. So is reducing the fat in the diet, including vegetable oils. More importantly, people who had low fiber ingestion in the diet had a greater chance of getting CD. So, a gradual increase in the amount of fiber is likely helpful in hopefully preventing CD. This should always be done in conjunction with the physician. It should be done gradually and should include soluble fibers which fertilize the best colon bacteria. The good bacteria grow and push out the bad ones. These good bacteria provide short chain fatty acids, which can help heal the bowel wall. Prebiotics such as Prebiotin are available. Fiber and Ulcerative Colitis We still do not have strong evidence in the medical literature on what is the best diet for UC. Eating plenty of soluble fiber, including prebiotic fibers will nourish the best colon bacteria. It is hoped that this will result in a decrease in the bad or Firmicutes bacteria. It is well-known that when the good bacteria proliferate that they produce lots of acid substances called short chain fatty acids (SCFA). The SCFAs actually nourish the cells of the colon wall, the very ones that become inflamed in UC. In addition, when the colon contents become acid, the smelly sulfide gases are not produced and the flatus becomes less noxious and may even have no smell at all. This may have a benef icial effect on the inflammation. Prebiotics such as Prebiotin are the best type of soluble fiber Activity:: No lifting over 20 pounds or strenuous activity x24 hours Diet:: small light meals x 24 hrs Discharge Orders Discharge Orders: Discharge Order (Routine); Ordered 04/20/20 Ordered By: Naatlie Dempsey DS: Diagnosis Discharge Diagnosis (1) Colorectal polyps: Status: Acute (2) Diverticulosis: Status: Acute
== END 2020-04-20 13:10 | disposition home or self-care (01) ==
PROVIDERS: PCP Family Medicine; Visit Provider Surgery
PROC: 0DJD8ZZ Inspection of Lower Intestinal Tract, Via Natural or Artificial Opening Endoscopic (ICD-10-PCS; CPT 45378; principal; 2020-04-20 09:45)
DX: Z12.11 Encounter for screening for malignant neoplasm of colon (principal); D12.4 Benign neoplasm of descending colon; D12.5 Benign neoplasm of sigmoid colon; K62.1 Rectal polyp; Z86.010 Personal history of colon polyps; K57.30 Diverticulosis of large intestine without perforation or abscess without bleeding; I10 Essential (primary) hypertension
CPT/HCPCS: 45385; 45380; 88305

== ENCOUNTER 2020-07-04 00:43 | Outpatient (CLI) | payer OTHER, SELFPAY ==
--- NOTE | 2020-07-04 | DI.US_ITS ---
EXAM: US ABDOMEN CLINICAL HISTORY: CIRRHOSIS OF LIVER,K74.60,SCREENING FOR HCC,Z12.9 TECHNIQUE: Ultrasound abdomen performed using standard protocol. COMPARISON: US US ABDOMEN from 02/10/2020 FINDINGS: ABDOMINAL AORTA AND IVC: Visualized portions normal caliber. PANCREAS: Normal where visualized. LIVER: Normal. Hepatopedal flow in the Portal Vein. No evidence of a hepatic mass. The liver measure s 13.6 cm in length. GALLBLADDER: No evidence of cholelithiasis. No evidence of wall thickening. No pericholecystic fluid identified. There are several echogenic nodules along the wall of the gallbladder consistent with trey yps. BILIARY SYSTEM: Common bile duct measures < 7 mm. No intrahepatic biliary ductal dilation. MONTEZ'S SIGN: Negative. KIDNEYS: Kidneys are symmetric in size. No evidence of renal calculi. No evidence of hydronephrosis. No renal mass or cyst identified. SPLEEN: Not enlarged. ASCITES: None seen. IMPRESSION: No sonographic evidence of a hepatic mass. DATA REPOSITORY:
== END 2020-07-04 01:03 ==
PROVIDERS: PCP Family Medicine; Visit Provider Family Medicine
DX: K74.60 Unspecified cirrhosis of liver (principal); Z12.9 Encounter for screening for malignant neoplasm, site unspecified
CPT/HCPCS: 76700

== ENCOUNTER 2020-07-11 01:37 | Outpatient (CLI) | payer OTHER, SELFPAY ==
--- NOTE | 2020-07-11 | DI.CTLCSR_ITS ---
EXAM: CT CHEST LUNG CANCER SCREEN the CLINICAL HISTORY: SCREENING FOR LUNG CA,CURRENT SMOKER, F17.210 TECHNIQUE: Imaging Protocol: Axial computed tomography images with coronal and sagittal reformatted images were created and reviewed COMPARISON: CT CT CHEST LUNG CANCER SCREEN from 02/05/2019 FINDINGS: Tracheobronchial tree: Patent where visualized. Mediastinum and Reshma: No dominant adenopathy or fluid collection. Pulmonary parenchyma: No consolidation or dominant measurable mass. Hyperinflation. Moderate emphyse matous changes more severe in the upper lobes. Mildly increased interstitial changes. Lung Nodules: There are a few scattered nodules measuring 3 millimeters or less in diameter bilaterally. Pleura: No effusion or pneumothorax. Heart: The heart is not dilated. coronary artery calcifications are seen. Aorta: Thoracic aorta non-dilated. Moderate calcification. Upper abdomen: Unremarkable. Bones: Prominent disc osteophytes in the thoracic spine. Schmorl's nodes at multiple levels. Soft Tissues: Unremarkable. IMPRESSION: Few scattered tiny bilateral pulmonary nodules are noted. Emphysematous changes. Lung RADS Cat 2 - Benign Appearance / Behavior: Nodules with a very low likelihood of becoming a clin ically active cancer due to size or lack of growth Lung-RADS 1.0 CATEGORIES: Category 0 - Prior chest CT exam(s) being located for comparison. Category 1 - Annual screening in 12 months. No nodules or definitely benign nodules. Category 2 - Annual screening in 12 months. Benign appearance. Nodules with low likelihood of becomin g active cancer. Category 3 - 6-month follow-up. Probably benign. Short-term follow-up suggested. Nodules with low lik elihood of becoming active cancer. Category 4A - 3-month follow-up and CT/PET if >8 mm in size. Suspicious finding. Findings which requi re additional testing. Category 4B - Findings which require additional testing and tissue sampling. Suspicious finding. C Added to Any of the Above - History of prior lung cancer screening. S Added to Any of the Above - Significant unexpected other finding. RADIATION DOSE DELIVERED: 70.31mGy.cm Total DLP DATA REPOSITORY: All CT scans at this facility are submitted to the National Radiology Data Registry (NRDR) Dose Index Registry (DIR) with the [employer] (ACR). RADIATION OPTIMIZATION: All CT scans at this facility use at least one of these dose optimization te chniques: automated exposure control; mA and/or kV adjustment per patient size (includes targeted exa ms where dose is matched to clinical indication); or iterative reconstruction.
== END 2020-07-11 01:57 ==
PROVIDERS: PCP Family Medicine; Visit Provider Family Medicine
DX: F17.210 Nicotine dependence, cigarettes, uncomplicated (principal); R91.8 Other nonspecific abnormal finding of lung field
CPT/HCPCS: G0297

== ENCOUNTER → 2020-07-27 09:41 | Outpatient (REF) | payer OTHER, SELFPAY ==
--- NOTE | 2020-07-27 09:15 | SKI_PTH ---
PATIENT: Deng Pandya LOC: [facility] U#:[id number] AGE/SX: 75/M ROOM: RE07/27/[address]: Jax Antony : 1950 BED: DIS: SPEC #: [id number] RECD: 07/27/20 17:32 STATUS: TAHIRA LU #: [id number] DAVID: 07/27/20 09:[address]: Jax Antony DEPT: Surgical Specimen RECD BY: Julia Jaimes Tissues: 1 - SKIN BIOPSY(SHAVE/PUNCH) Procedures: SKIN LEVEL 4 Comments: [id number]
[2020-07-27 18:25] LABS: HCT 47.1 % (40.0-50.0); HGB 16.1 g/dL (13.5-17.5); MCH 34.7 pg (27.0-33.0); MCHC 34.2 % (32.0-36.0); MCV 101.5 fL (80-95); MPV 11.4 fL (8.0-11.0); Platelet Count 272 10^3/uL (130-400); RBC 4.64 10^6/uL (4.36-5.78); RDW 12.3 % (11.8-14.1); RDW-SD 46.1 fL; WBC 7.89 10^3/uL (4.4-10.8)
[2020-07-27 18:37] LABS: Prothrombin Time 10.3 sec (9.3-11.0)
[2020-07-27 19:28] LABS: ALT 20 U/L (16-63); AST 18 U/L (15-37); Albumin 4.2 g/dL (3.4-5.0); Alkaline Phosphatase 89 U/L (46-116); BUN 12 mg/dL (7-18); Bilirubin, Total 0.5 mg/dL (0.2-1.0); CREATININE 1.02 mg/dL (0.70-1.30); Calcium 9.4 mg/dL (8.5-10.1); Chloride 104 mmol/L (98-107); Glucose 99 mg/dL (74-106); Potassium 4.6 mmol/L (3.5-5.1); Sodium 138 mmol/L (136-145); Total Protein 7.9 g/dL (6.4-8.2)
== END ==
LOC: NCHCN 09:41
PROVIDERS: PCP Family Medicine; Visit Provider Family Medicine
DX: L30.8 Other specified dermatitis (principal)
CPT/HCPCS: 80053; 85027; 85610; 88305

== ENCOUNTER 2021-01-31 20:58 | Outpatient (REF) | payer OTHER, SELFPAY ==
[2021-01-31 16:09] LABS: HCT 48.8 % (40.0-50.0); HGB 16.7 g/dL (13.5-17.5); MCH 34.8 pg (27.0-33.0); MCHC 34.2 % (32.0-36.0); MCV 101.7 fL (80-95); Platelet Count 293 10^3/uL (130-400); RDW 12.6 % (11.8-14.1); RDW-SD 48.6 fL; WBC 7.21 10^3/uL (4.4-10.8)
[2021-01-31 16:20] LABS: ALT 26 U/L (16-63); AST 26 U/L (15-37); Albumin 4.2 g/dL (3.4-5.0); Alkaline Phosphatase 106 U/L (46-116); Anion Gap 10.1 mmol/L (3-11); BUN 12 mg/dL (7-18); Bilirubin, Total 0.8 mg/dL (0.2-1.0); CO2 25.9 mmol/L (21.0-32.0); CREATININE 0.9 mg/dL (0.70-1.30); Calcium 9.6 mg/dL (8.5-10.1); Chloride 105 mmol/L (98-107); Glucose 92 mg/dL (74-106); Potassium 4.7 mmol/L (3.5-5.1); Sodium 141 mmol/L (136-145); Total Protein 8.3 g/dL (6.4-8.2)
== END 2021-01-31 20:59 | disposition home or self-care (01) ==
LOC: NCHCN 20:58
PROVIDERS: PCP Family Medicine; Visit Provider Family Medicine
DX: K74.60 Unspecified cirrhosis of liver (principal)
CPT/HCPCS: 80053; 85027

== ENCOUNTER 2021-07-30 16:14 | Outpatient (REF) | payer OTHER, SELFPAY ==
[2021-07-30 17:55] LABS: HCT 49.4 % (40.0-50.0); HGB 16.3 g/dL (13.5-17.5); MCH 34.3 pg (27.0-33.0); MPV 11.7 fL (8.0-11.0); Platelet Count 298 10^3/uL (130-400); RBC 4.75 10^6/uL (4.36-5.78); RDW 12.9 % (11.8-14.1); RDW-SD 49.9 fL; WBC 7.13 10^3/uL (4.4-10.8)
[2021-07-30 18:28] LABS: ALT 25 U/L (16-63); AST 21 U/L (15-37); Albumin 4.3 g/dL (3.4-5.0); Alkaline Phosphatase 107 U/L (46-116); Anion Gap 8.5 mmol/L (3-11); BUN 13 mg/dL (7-18); Bilirubin, Total 0.6 mg/dL (0.2-1.0); CO2 26.5 mmol/L (21.0-32.0); CREATININE 0.9 mg/dL (0.70-1.30); Calcium 9.5 mg/dL (8.5-10.1); Chloride 104 mmol/L (98-107); Glucose 94 mg/dL (74-106); Potassium 4.4 mmol/L (3.5-5.1); Sodium 139 mmol/L (136-145); Total Protein 8.2 g/dL (6.4-8.2)
[2021-07-30 18:44] LABS: Prothrombin Time 10.2 sec (9.3-11.0)
== END 2021-07-30 16:15 | disposition home or self-care (01) ==
LOC: NCHCN 16:14
PROVIDERS: PCP Family Medicine; Visit Provider Family Medicine
DX: K74.60 Unspecified cirrhosis of liver (principal)
CPT/HCPCS: 80053; 85027; 85610

== ENCOUNTER 2021-08-29 01:11 | Outpatient (CLI) | payer MEDICARE, SELFPAY ==
--- NOTE | 2021-08-29 08:30 | DI.US_ITS ---
Exam(s) US ABDOMEN LIMITED EXAM: US ABDOMEN LIMITED CLINICAL HISTORY: CIRRHOSIS OF LIVER, K74.60; HCC SCREEN TECHNIQUE: Ultrasound abdomen performed using standard protocol. COMPARISON: US US ABDOMEN from 02/10/2020 US US ABDOMEN from 07/04/2020 FINDINGS: There is no ascites evident. LIVER: There are no hepatic lesions evident nor dilatation of intrahepatic ducts. GALLBLADDER/BILIARY: Multiple small gallbladder polyps are noted the largest measuring 5-6 millimeter s, unchanged. The common hepatic duct isnot dilated, measuring 4mm at the level of yamel hepatis. PANCREAS: There is no evidence of pancreatic mass nor dilatation of the pancreatic duct. However, pl ease note that pancreatic tail was not able to be visualized due to overlying bowel gas. RIGHT KIDNEY:No evidence of solid mass, calculus, nor hydronephrosis. No cortical cysts evident. ABDOMINAL AORTA AND IVC: Visualized portions exhibit normal caliber. IMPRESSION: 1. Gallbladder polyps again noted and appear stable compared to the prior study listed above. No ev idence of acute cholecystitis. 2. Visualized pancreas appears unremarkable, however, the pancreatic tail was not visualized due to overlying bowel gas. 3. No other significant right upper quadrant abdominal findings. No ascites DATA REPOSITORY:
--- NOTE | 2021-08-29 09:15 | DI.CTLCSR_ITS ---
Exam(s) CT CHEST LUNG CANCER SCREEN EXAM: CT CHEST LUNG CANCER SCREEN CLINICAL HISTORY: TOBACCO ABUSE, F17.210; ADULT PREVENTATIVE CARE, Z00.00,SCREEN LUNG CA. TECHNIQUE: Imaging Protocol: Low Dose Technique CONTRAST MATERIAL: None COMPARISON: CT CT CHEST LUNG CANCER SCREEN from 07/11/2020 FINDINGS: CHEST: LUNGS: Emphysematous lung changes are again noted.. There are no confluent infiltrates. No pleural effusions. Previously described small benign bilateral nodules remain stable. Most of these are pro bably benign granulomas. MEDIASTINUM: There is no obvious hilar nor mediastinal adenopathy. CARDIAC: Heart size is normal. There is no pericardial effusion.Caliber of the thoracic aorta is wit hin normal limits. OTHER: None significant OSSEOUS: No significant osseous lesions.. IMPRESSION: 1. Stable benign-appearing bilateral small nodules, most which are probably granulomas. 2. Emphysematous changes again noted, however, there are no new infiltrates nor pleural effusions. 3. Lung RADS Cat 2 - Benign Appearance / Behavior: Nodules with a very low likelihood of becoming a c linically active cancer due to size or lack of growth Lung-RADS 1.0 CATEGORIES: Category 0 - Prior chest CT exam(s) being located for comparison. Category 1 - Annual screening in 12 months. No nodules or definitely benign nodules. Category 2 - Annual screening in 12 months. Benign appearance. Nodules with low likelihood of becomin g active cancer. Category 3 - 6-month follow-up. Probably benign. Short-term follow-up suggested. Nodules with low lik elihood of becoming active cancer. Category 4A - 3-month follow-up and CT/PET if >8 mm in size. Suspicious finding. Findings which requi re additional testing. Category 4B - Findings which require additional testing and tissue sampling. Category 4X - Category 3 or 4 nodules with additional features or imaging findings that increases the suspicion of malignancy. Modifier S- Potentially clinically significant findings (non lung cancer) RADIATION DOSE DELIVERED: 78.97mGy.cm Total DLP 1.84mGy CTDIvol DATA REPOSITORY: All CT scans at this facility are submitted to the National Radiology Data Registry (NRDR) Dose Index Registry (DIR) with the [employer] (ACR). RADIATION OPTIMIZATION: All CT scans at this facility use at least one of these dose optimization te chniques: automated exposure control; mA and/or kV adjustment per patient size (includes targeted exa ms where dose is matched to clinical indication); or iterative reconstruction.
== END 2021-08-29 01:31 ==
PROVIDERS: PCP Family Medicine; Visit Provider Family Medicine
DX: F17.210 Nicotine dependence, cigarettes, uncomplicated (principal); Z12.2 Encounter for screening for malignant neoplasm of respiratory organs; R91.8 Other nonspecific abnormal finding of lung field
CPT/HCPCS: 71271; 76705

== ENCOUNTER 2022-01-28 09:56 | Outpatient (REF) | payer MEDICARE, SELFPAY ==
[2022-01-28 14:40] LABS: HCT 47.1 % (40.0-50.0); HGB 16.3 g/dL (13.5-17.5); MCH 34.6 pg (27.0-33.0); MCHC 34.6 % (32.0-36.0); MCV 100 fL (80-95); MPV 11.3 fL (8.0-11.0); Platelet Count 233 10^3/uL (130-400); RBC 4.71 10^6/uL (4.36-5.78); RDW 12.4 % (11.8-14.1); RDW-SD 46.2 fL; WBC 7.27 10^3/uL (4.4-10.8)
[2022-01-28 15:51] LABS: ALT 23 U/L (16-63); AST 30 U/L (15-37); Albumin 4.1 g/dL (3.4-5.0); Alkaline Phosphatase 100 U/L (46-116); Anion Gap 10.1 mmol/L (3-11); BUN 14 mg/dL (7-18); Bilirubin, Total 0.7 mg/dL (0.2-1.0); CO2 23.9 mmol/L (21.0-32.0); CREATININE 0.9 mg/dL (0.70-1.30); Calcium 9.4 mg/dL (8.5-10.1); Chloride 103 mmol/L (98-107); Glucose 93 mg/dL (74-106); Magnesium 2.2 mg/dL (1.8-2.4); Potassium 4.2 mmol/L (3.5-5.1); Sodium 137 mmol/L (136-145); Total Protein 8.5 g/dL (6.4-8.2)
[2022-01-28 16:37] LABS: Vitamin B12 367 pg/mL (193-986)
== END 2022-01-28 09:57 | disposition home or self-care (01) ==
LOC: NCHCN 09:56
PROVIDERS: PCP Family Medicine; Visit Provider Family Medicine
DX: F10.20 Alcohol dependence, uncomplicated (principal); K74.60 Unspecified cirrhosis of liver; I10 Essential (primary) hypertension
CPT/HCPCS: 80053; 85027; 82607; 83735; 85610

== ENCOUNTER → 2022-02-19 08:23 | Outpatient (BNVA) | payer MEDICARE, SELFPAY | PROVIDERS: PCP Family Medicine; Referring Provider Family Medicine; Visit Provider Surgery | DX: K70.30 Alcoholic cirrhosis of liver without ascites (principal); F10.20 Alcohol dependence, uncomplicated; F17.210 Nicotine dependence, cigarettes, uncomplicated; R13.10 Dysphagia, unspecified | CPT/HCPCS: 99213 ==

== ENCOUNTER 2022-03-29 00:57 | Outpatient (CLI) | payer MEDICARE, SELFPAY ==
[2022-03-29 11:51] LABS: Source Nasal/Nares
[2022-03-29 14:19] LABS: COVID-19 PCR Negative (Negative)
== END 2022-03-29 00:58 | disposition home or self-care (01) ==
LOC: LBO 00:57
PROVIDERS: PCP Family Medicine; Visit Provider Surgery
DX: Z20.822 Contact with and (suspected) exposure to COVID-19 (principal); Z01.818 Encounter for other preprocedural examination
CPT/HCPCS: 87635

== ENCOUNTER 2022-04-01 08:49 | Day surgery (SDC) | payer MEDICARE, SELFPAY ==
--- NOTE | 2022-04-01 06:25 | W.PREOPHP ---
Assessment and Plan Assessment and plan (1) Dysphagia: Status: Acute Assessment and plan: Mr. Pandya is not gentleman with a past medical history significant for EtOH induced cirrhosis and hep C.? He now complains of dysphagia especially with solids.? He does not complain of any heartburn or reflux type symptoms.? He does also smoke.? We discussed doing an upper endoscopy to rule out scarring at the GE junction versus a mass.? The risks and benefits were reviewed as well as the complications.? He wished to proceed Risks, benefits and complications have been reviewed. Complications include but are not limited to bleeding, pain, perforation, sore throat, aspiration, and adverse reaction to the medications.? Questions were entertained and answered to their satisfaction and they wished to proceed. No guarantees were given or implied. Anesthesia: general (without airway) Previous surgical intolerances: No Previous surgical complications: No Pulmonary risk factors: age > 60, smoker Date of surgery: TBD Planned procedure: Yes Sleep apnea risks: No Can climb one flight of stairs (12-13 steps) in less than 30 seconds without stopping and without symptoms: No The surgery proposed for this patient is: Mod risk Active cardiac conditions: none Active risk factors: none ASA (acetylsalicylic acid): not used Beta blockers: not used (2) Alcoholic cirrhosis of liver: Status: Acute History of Present Illness Narrative: Mr. Pandya is a pleasant 72-year-old gentleman who is here today because of some dysphagia.? He tells me that it is to solids only.? He has some teeth missing so he is to cut up his meat quite small if he does not then able to get stuck.? He denies any pain with swallowing.? He denies any heartburn or reflux type symptoms.? He is not on any antacids.? He is a smoker and drinker.? He does tell me that his mom had to have a procedure with him balloon dilatation. He has cut down on his alcohol intake.? He now drinks 2 beers or 1 twisted tea per day.? He does have a history of cirrhosis and hep C.? He was treated for his hep C.? He does get short of breath with walking up a flight of stairs.? He denies chest pain or palpitations. There have been no changes in his health since he was last seen in the office Review of Systems All systems reviewed & are unremarkable except as noted in HPI and below PFSH All Active Problems Dysphagia (Acute) Alcoholic cirrhosis of liver (Acute) Alcohol use (Acute) Medical History Cirrhosis of liver Colorectal polyps Compression of common peroneal nerve Cyst pt. reports cyst or polyp of gall bladder, states it is being monitored, states he feels a discomfort when bending to left Diverticulosis Eczema Gall bladder polyp Hepatitis C History of hepatitis C Hyperlipidemia Hypertension Rotator cuff tear, right Scrotal mass Tobacco abuse Tubular adenoma (~04/20/20) Tubulovillous adenoma Surgical History Colonoscopy - IV Sedation History of colonoscopy (~04/20/20) History of shoulder surgery removal of foreign (04/07/16) on testes S/P colonoscopy (~06/21/19) tubular adenoma x3. Tubulovillous adenoma x3, one wth high grade dysplasia. Social History Smoking/Tobacco Use Status: Current every day Tobacco Type: cigarettes Years smoked: 50 Smoking risk assessment performed?: Yes Alcohol Intake: current Alcohol Intake frequency: 0-2 drinks per day Alcohol type: beer Drug use: Occasionally Substance use type: marijuana Details: alcohol: t-1, 3 beers. Marijuana: t-1, 1/2 joint Do you feel safe at home: Yes Additional Social history: live alone Meds Allergies and Home Medications Allergies Allergy/AdvReac Type Severity Reaction Status Date / Time lisinopril Allergy Intermediate vision Unverified 04/01/22 09:28 changes Home Medications Medication Instructions Recorded Confirmed Type losartan 50 mg-hydrochlorothiazide 1 tab PO DAILY 03/31/20 04/01/22 History 12.5 mg tablet Exam Const General: comfortable and no acute distress Orientation: alert and oriented x3 HENMT Head: normocephalic and atraumatic Resp Effort & Inspection: normal respiratory effort Auscultation: clear to auscultation bilaterally Cardio Rate: regular rate Rhythm: regular rhythm
--- NOTE | 2022-04-01 06:28 | W.PM.DSUDISC ---
Discharge Plan Disposition Patient Disposition: HOME Condition: Good Discharge Details Reason For Visit: EGD Attending Provider: Luana Ledesma Primary Care Provider: Jax Antony Home Meds and New Rx's Prescriptions: New omeprazole 40 mg capsule,delayed release(DR/EC) 40 mg PO BID Qty: 60 2RF sucralfate [Carafate] 1 gram tablet 1 g PO QID Qty: 56 0RF Rx Instructions: 1 tab before meals and at bedtime for 2 weeks Continued losartan-hydrochlorothiazide 50-12.5 mg tablet 1 tab PO DAILY Discharge Instructions Instructions: Diet for Stomach Ulcers and Gastritis (ED), Gastritis (DC), Esophagitis (DC) Additional Instructions: Findings: Inflammation of the stomach and esophagus Follow up: with pCP in 4 weeks you will recieve a letter from the office in 10-14 days with results Please call if you develop: fevers >101.5 Nausea or Vomiting Abdominal pain that is not transient Rectal bleeding that is more then a tbsp A hard abdomen and inability to pass gas DAY SURGERY UNIT POST ENDOSCOPY INSTRUCTIONS Instructions for everyone who is given Anesthesia: For your safety, please do the following for the next 24 Hours: a. Do not drive or operate dangerous equipment b. Do not drink alcohol beverages or use any recreational drugs for the first 24 hours or while taking pain medications. The medications in your body may have a reaction that can be dangerous. c. Do not make any important decisions or sign any important papers 1. Generally there are no restrictions on your activity after a day or so has gone by, but you may feel a bit fatigued for a few days. 2. After you arrive home you may have a light meal and return to a normal diet as you can tolerate it without feeling sick to your stomach. 3. After surgery, you may feel pain or discomfort. This should be only transient, but if it persists please contact your doctor. 4. If there are any questions regarding the findings of your procedure, please feel free to contact your doctor. 6. If you are unable to contact your doctor with a problem, contact the hospital at [phone]. 7. Continue all your regular medications unless directed otherwise. I understand the above instructions and have no questions. Signature of Patient or Responsible Adult Escort Date/Time Name of Responsible Adult Escort Signature of Nurse Date/Time Activity:: Activity as Tolerated Diet:: low acid Discharge Orders Discharge Orders: Discharge Order (Routine); Ordered 04/01/22 Ordered By: Luana Ledesma DS: Diagnosis Discharge Diagnosis (1) Dysphagia: Status: Acute (2) Alcoholic cirrhosis of liver: Status: Acute
--- NOTE | 2022-04-01 06:29 | W.PM.ENDDOP ---
Date of service: 04/01/22 Time of Service: 11:09 Endoscopy Report DATE OF PROCEDURE: 04/01/22 PRE-OP DIAGNOSIS: Dysphagia PROCEDURE: EGD with biopsies SURGEON: Luana Ledesma ANESTHESIA TYPE: General:No Airway ESTIMATED BLOOD LOSS: 3 PATHOLOGY: other (bx of antrum, body and esophagus) COMPLICATIONS: None DISPOSITION: same day INDICATIONS: Mr. Pandya is not gentleman with a past medical history significant for EtOH induced cirrhosis and hep C.? He now complains of dysphagia especially with solids.? He does not complain of any heartburn or reflux type symptoms.? He does also smoke.? We discussed doing an upper endoscopy to rule out scarring at the GE junction versus a mass.? The risks and benefits were reviewed as well as the complications.? He wished to proceed Risks, benefits and complications have been reviewed. Complications include but are not limited to bleeding, pain, perforation, sore throat, aspiration, and adverse reaction to the medications.? Questions were entertained and answered to their satisfaction and they wished to proceed. No guarantees were given or implied. FINDINGS: inflammation of the stomach and esophagus PROCEDURE DESCRIPTION: After informed consent was obtained the patient was take to the procedure room and placed in a supine position. Monitors were applied and a time out was done. The patients name, date of , procedure type, allergies to medications and metal in their body was reviewed. A bite block was placed and the patient was sedated. Once sedated and comfortable the gastroscope was advanced through the oropharynx which was grossly normal into the esophagus. The proximal esophagus showed inflammation and signs of walls's. Mid-esophagus was normal. In the distal esophagus there was inflammation noted. The scope was advanced into the stomach and through the pylorus into the 3rd portion of the duodenum. The duodenum was noted to be normal. The scope was retracted back into the stomach and biopsies were done to rule out H. pylori. There were no ulcers. The scope was retroflexed. The cardia and fundus were noted to be normal. There a small hiatal hernia noted. The scope was retracted back into the esophagus and biopsies were done of the GE junction to rule out Walls's. The Z line was irregular. The GE junction was at 34 cm. There was inflammation of the proximal esophagus at 19 to 21 cm. Biopsies were done. The scope was removed and the patient was woken up and taken back to [facility] in stable condition.
[2022-04-01 09:30] VITALS: BP 154/86; PULSE 79; RESP 16; TEMP 36; O2SAT 98
[2022-04-01] MEDS: Lactated Ringers 1,000 ML 80 ML IV (09:46)
--- NOTE | 2022-04-01 10:00 | W.ANESPRE ---
General Info Date of Service Date Performed: 04/01/22 Height: 5 ft 7 in Weight: 60.2 kg Body Mass Index (BMI): 20.7 Surgical Procedure: Operation Date: 04/01/22 12:05 Proposed Procedure Side Surgeon p Gastroscopy Luana Ledesma MD Meds Allergies and Home Medications Allergies Allergy/AdvReac Type Severity Reaction Status Date / Time lisinopril Allergy Intermediate vision Unverified 04/01/22 09:28 changes Home Medication Medication Instructions Recorded losartan 50 mg-hydrochlorothiazide 1 tab PO DAILY 03/31/20 12.5 mg tablet Current Visit Medications: Current Medications Generic Name Dose Route Start Last Admin Trade Name Freq PRN Reason Stop Dose Admin Hyoscyamine Sulfate 0.125 mg 04/01/22 06:31 Hyoscyamine 0.125 Mg Sl/Oral/Chew SL DIRECTED PRN Ringer's Solution 1,000 mls @ 80 mls/hr 04/01/22 06:00 04/01/22 09:46 IV 04/28/22 23:59 80 mls/hr INFUSION RJ Administration IV Miscellaneous Supplies 1 each 04/01/22 06:00 Iv Access IV 04/28/22 23:59 DIRECTED RJ Ondansetron HCl 4 mg 04/01/22 06:31 Ondansetron 4 Mg/2 Ml Vial IVP Q4H PRN PRN Nausea / Vomiting Sodium Chloride 0 ml 04/01/22 06:00 Normal Saline Flush 10 Ml Syr IV 04/28/22 23:59 PRN PRN Sodium Chloride 0 ml 04/01/22 06:00 Normal Saline 10 Ml Vial IJ 04/28/22 23:59 DIRECTED PRN Sterile Water 0 ml 04/01/22 06:00 Water,Injection,Sterile 10 Ml Vial IJ 04/28/22 23:59 DIRECTED PRN PFSH Active Problems Active Problems: Problem Status Onset Code Dysphagia R13.10 Alcoholic cirrhosis of liver K70.30 Alcohol use Z78.9 Medical History Medical History Cirrhosis of liver Colorectal polyps Compression of common peroneal nerve Cyst pt. reports cyst or polyp of gall bladder, states it is being monitored, states he feels a discomfort when bending to left Diverticulosis Eczema Gall bladder polyp Hepatitis C History of hepatitis C Hyperlipidemia Hypertension Rotator cuff tear, right Scrotal mass Tobacco abuse Tubular adenoma (~04/20/20) Tubulovillous adenoma Surgical History Surgical History Colonoscopy - IV Sedation History of colonoscopy (~04/20/20) History of shoulder surgery removal of foreign (04/07/16) on testes S/P colonoscopy (~06/21/19) tubular adenoma x3. Tubulovillous adenoma x3, one wth high grade dysplasia. Tobacco Smoking/Tobacco Use Status: Current every day Tobacco Type: cigarettes Years smoked: 50 Alcohol Alcohol Intake: current Alcohol intake frequency: 0-2 drinks per day Alcohol type: beer Substance Use Substance use: Occasionally Substance use type: marijuana Details: alcohol: t-1, 3 beers. Marijuana: t-1, 1/2 joint Vital Signs and Lab Results Vital Signs Most Recent Vital Signs in EMR: Most Recent Vital Signs Temp Pulse Resp BP Pulse Ox 36.0 C L 79 16 154/86 H 98 04/01/22 09:30 04/01/22 09:30 04/01/22 09:30 04/01/22 09:30 04/01/22 09:30 Lab Results Blood Type / Crossmatch: No Data to Display Complete Blood Count: No Data to Display Complete Metabolic Panel: No Data to Display Liver Function Panel: No Data to Display Coagulation Panel: No Data to Display Cardiac Panel: No Data to Display Arterial Blood Gas: No Data to Display Venous Blood Gas: No Data to Display Pancreas Panel: No Data to Display Thyroid Panel: No Data to Display Infectious Disease: Coronavirus (COVID-19)(PCR) Negative (Negative) 03/29/22 08:30 Coronavirus 2019 Source Nasal/Nares 03/29/22 08:30 Blood Cultures: No Data to Display Toxicology Panel: No Data to Display Anesthesia Assessment and Plan Anesthesia History Personal History: No History of Anesthesia Complications Family History: No Family History of Anesthesia Complications Exercise Tolerance Exercise Tolerance: Metabolic Equivalents>4 Pertinent Negatives Pertinent Negatives: No Symptoms of GERD, No Major Cardiovascular Symptoms or Complaints, No Major Pulmonary Symptoms or Complaints (Smoker 55 PPY) and No History of CVA/TIA Cardiac & Pulmonary Exam Cardiac Exam: Normal S1/S2 Heart Sounds Pulmonary Exam: Clear Bilateral Breath Sounds Implantable Cardiac Device Does patient have a Pacemaker or an ICD?: No Airway Exam Known Difficult Airway: No Mallampati Class: 4 Mouth Opening: Normal (> 3cm) Thyromental Distance: Greater than 3 cm Neck Range of Motion: Full ROM Neck Circumference: Normal Teeth Condition: Removable Dentures/Plates Upper ASA Classification ASA Score: ASA 2 Emergency Case?: No NPO Status NPO Status: NPO Clears >2 hours, Solids >8 hours Anesthesia Plan Resuscitation Status: Full Code Anesthesia Technique: General Anesthesia Airway Planned: Natural Airway Monitors Used: Standard Monitors
[2022-04-01 10:03] VITALS: BMI 20.7
--- NOTE | 2022-04-01 10:54 | BOWEL_PTH ---
PATIENT: Deng Pandya LOC: [facility] U#:[id number] AGE/SX: 72/M ROOM: RE04/01/[address]: Luana Ledesma MD : [id number] BED: DIS: 04/01/2022 SPEC #: [id number] RECD: 04/01/22 11:35 STATUS: TAHIRA REQ #: [id number] DAVID: 04/01/22 10:[address]: Luana Ledesma DEPT: Surgical Specimen RECD BY: Vivian Rowley ENTERED: 04/01/22 11:37 SP TYPE: Bowel OTHR DR: Jax Antony Tissues: 1 - STOMACH BIOPSY 2 - STOMACH BIOPSY 3 - STOMACH BIOPSY 4 - ESOPHAGUS BIOPSY 5 - ESOPHAGUS BIOPSY Procedures: GROSS AND MICRO LEVEL 4 Comments: [id number]
[2022-04-01 11:15] VITALS: BP 137/86; PULSE 86; RESP 18; TEMP 36.4; O2SAT 96
--- NOTE | 2022-04-01 11:35 | W.ANESPOSTOP ---
Postoperative Evaluation Date, Time and Location Date Performed: 04/01/22 Time Performed: 11:35 Patient Location: Day Surgery Unit Vital Signs Most Recent Imported Vital Signs: Most Recent Vital Signs Temp Pulse Resp BP Pulse Ox 36.4 C L 86 18 137/86 96 04/01/22 11:15 04/01/22 11:15 04/01/22 11:15 04/01/22 11:15 04/01/22 11:15 Most Recent Manually Entered Vital Signs: Adult Blood Pressure: 128/76 Heart Rate: 81 Respirations: 12 Oxygen Saturation (%): 98 Temperature (C): 36.3 C Pain Score (0-10 Scale): 0 Pain Score Most Recent Pain Score: Most Recent Pain Score Pain Level 0 04/01/22 09:30 Assessment Mental Status: Awake (Alert & Oriented to Patient Baseline) Airway and Respiratory Function: Patent airway with normal (patient baseline) respiratory exam Cardiovascular Function: Hemodynamically Stable Hydration Status: Adequately Hydrated Nausea & Vomiting: No Nausea or Vomiting Pain: Pt. Denies Any Pain Peripheral Nerve Block: Patient did not receive a nerve block
[2022-04-01 11:36] VITALS: BP 128/76; BP 152/84; PULSE 81; PULSE 82; RESP 12; RESP 16; TEMP 36.4; TEMPC 36.3; O2SAT 97; O2SAT 98
== END 2022-04-01 12:00 | disposition home or self-care (01) ==
PROVIDERS: PCP Family Medicine; Visit Provider Surgery
PROC: 0DJ68ZZ Inspection of Stomach, Via Natural or Artificial Opening Endoscopic (ICD-10-PCS; CPT 43235; principal; 2022-04-01 12:00)
DX: R13.10 Dysphagia, unspecified (principal); K20.90 Esophagitis, unspecified without bleeding; K44.9 Diaphragmatic hernia without obstruction or gangrene; K70.30 Alcoholic cirrhosis of liver without ascites; F17.210 Nicotine dependence, cigarettes, uncomplicated; I10 Essential (primary) hypertension; E78.5 Hyperlipidemia, unspecified; Z86.010 Personal history of colon polyps; K22.89 Other specified disease of esophagus; K31.89 Other diseases of stomach and duodenum
CPT/HCPCS: 43239; 88305; J2704

== ENCOUNTER 2022-04-26 00:36 | Outpatient (CLI) | payer MEDICARE, SELFPAY ==
--- NOTE | 2022-04-26 | DI.US_ITS ---
Exam(s) US ABDOMEN LIMITED EXAM: US ABDOMEN LIMITED CLINICAL HISTORY: CIRRHOSIS OF LIVER K74.60 HCC SCREEN TECHNIQUE: Ultrasound abdomen performed using standard protocol. COMPARISON: US US ABDOMEN LIMITED from 08/29/2021 FINDINGS: PANCREAS: Normal where visualized. LIVER: Normal. Hepatopedal flow in the Portal Vein. The liver measures in 15 cm length. GALLBLADDER: No evidence of cholelithiasis. No evidence of wall thickening. No pericholecystic fluid identified. There again seen several small nonshadowing nodules along the wall of the gallbladder con sistent with polyps. BILIARY SYSTEM: Common bile duct measures < 7 mm. No intrahepatic biliary ductal dilation. MONTEZ'S SIGN: Negative. RIGHT KIDNEY: Kidney is normal in size. No evidence of renal calculi. No evidence of hydronephrosis. No renal mass or cyst identified. ASCITES: None seen. ABDOMINAL AORTA AND IVC: Visualized portions normal caliber. IMPRESSION: 1. No evidence of a hepatic mass sonographically. 2. Stable gallbladder polyps. DATA REPOSITORY:
== END 2022-04-26 00:56 ==
LOC: DI 00:36
PROVIDERS: PCP Family Medicine; Visit Provider Family Medicine
DX: K74.60 Unspecified cirrhosis of liver (principal)
CPT/HCPCS: 76705

== ENCOUNTER 2022-07-22 15:46 | Outpatient (REF) | payer MEDICARE, SELFPAY ==
[2022-07-22 19:25] LABS: HCT 47.3 % (40.0-50.0); HGB 16.4 g/dL (13.5-17.5); MCH 34.9 pg (27.0-33.0); MCHC 34.7 % (32.0-36.0); MCV 101 fL (80-95); MPV 11.6 fL (8.0-11.0); Platelet Count 292 10^3/uL (130-400); RDW 12.1 % (11.8-14.1); RDW-SD 45.5 fL; WBC 8.91 10^3/uL (4.4-10.8)
[2022-07-22 19:36] LABS: Prothrombin Time 10.1 sec (9.3-11.0)
[2022-07-22 19:45] LABS: ALT 23 U/L (16-63); AST 25 U/L (15-37); Albumin 4.2 g/dL (3.4-5.0); Alkaline Phosphatase 119 U/L (46-116); Anion Gap 9.7 mmol/L (3-11); BUN 12 mg/dL (7-18); Bilirubin, Total 0.6 mg/dL (0.2-1.0); CO2 27.3 mmol/L (21.0-32.0); CREATININE 0.9 mg/dL (0.70-1.30); Calcium 9.6 mg/dL (8.5-10.1); Calculated LDL 107 mg/dL (<100); Chloride 101 mmol/L (98-107); Cholesterol 189 mg/dL (<200); Estimated GFR 91.31 (mL/min/1.73m2); Glucose 90 mg/dL (74-106); HDL Cholesterol 54 mg/dL (40-60); Potassium 4.1 mmol/L (3.5-5.1); Sodium 138 mmol/L (136-145); Total Protein 8.4 g/dL (6.4-8.2); Triglyceride 144 mg/dL (<150)
== END 2022-07-22 15:47 | disposition home or self-care (01) ==
LOC: NCHCN 15:46
PROVIDERS: PCP Family Medicine; Visit Provider Family Medicine
DX: E78.5 Hyperlipidemia, unspecified (principal); K74.60 Unspecified cirrhosis of liver
CPT/HCPCS: 80053; 80061; 85027; 85610

== ENCOUNTER 2022-08-30 00:15 | Outpatient (CLI) | payer MEDICARE, SELFPAY ==
--- NOTE | 2022-08-30 07:49 | DI.CTLCSR_ITS ---
Exam(s) CT CHEST LUNG CANCER SCREEN EXAM: CT CHEST LUNG CANCER SCREEN CLINICAL HISTORY: SCREENING FOR LUNG CA, SMOKER, F17.210 TECHNIQUE: Imaging Protocol: Axial computed tomography images with coronal and sagittal reformatted images were created and reviewed COMPARISON: CT CT CHEST LUNG CANCER SCREEN from 08/29/2021 FINDINGS: Tracheobronchial tree: Patent where visualized. Pulmonary parenchyma: Emphysematous changes are present in the lungs. There are calcified granuloma present. No architectural distortion. Lung Nodules: 2 noncalcified less than 4 mm nodules are again seen. No new pulmonary nodules are pre sent. Mediastinum and Reshma: No dominant adenopathy or fluid collection. The esophagus is unremarkable. Thyroid gland: Unremarkable. Lymph nodes: Unremarkable. Pleura: No effusion or pneumothorax. Heart: The heart is not dilated. Coronary artery calcifications are present. No pericardial effusion . Aorta: Thoracic aorta non-dilated.Atherosclerosis is present. Upper abdomen: There is diverticulosis seen in the transverse colon but no evidence of acute diverti culitis. Soft Tissues: Unremarkable. Bones: Within normal limits. IMPRESSION: Stable pulmonary nodules. Lung RADS Cat 2 - Benign Appearance / Behavior: Nodules with a very low likelihood of becoming a clin ically active cancer due to size or lack of growth Lung-RADS 1.0 CATEGORIES: Category 0 - Prior chest CT exam(s) being located for comparison. Category 1 - Annual screening in 12 months. No nodules or definitely benign nodules. Category 2 - Annual screening in 12 months. Benign appearance. Nodules with low likelihood of becomin g active cancer. Category 3 - 6-month follow-up. Probably benign. Short-term follow-up suggested. Nodules with low lik elihood of becoming active cancer. Category 4A - 3-month follow-up and CT/PET if >8 mm in size. Suspicious finding. Findings which requi re additional testing. Category 4B - Findings which require additional testing and tissue sampling. Suspicious finding. Category 4X - Category 3 or 4 nodules with additional features or imaging findings that increases the suspicion of malignancy. Modifier S- Potentially clinically significant finding. (Non lung cancer) RADIATION DOSE DELIVERED: 76.85mGy.cm Total DLP 76.85mGy.cmTotal DLP DATA REPOSITORY: All CT scans at this facility are submitted to the National Radiology Data Registry (NRDR) Dose Index Registry (DIR) with the [employer] (ACR). RADIATION OPTIMIZATION: All CT scans at this facility use at least one of these dose optimization te chniques: automated exposure control; mA and/or kV adjustment per patient size (includes targeted exa ms where dose is matched to clinical indication); or iterative reconstruction.
== END 2022-08-30 00:35 ==
LOC: DI 00:15
PROVIDERS: PCP Family Medicine; Visit Provider Family Medicine
DX: F17.210 Nicotine dependence, cigarettes, uncomplicated (principal); Z12.2 Encounter for screening for malignant neoplasm of respiratory organs; R91.1 Solitary pulmonary nodule
CPT/HCPCS: 71271

== ENCOUNTER 2023-06-10 16:17 | Outpatient (REF) | payer MEDICARE, SELFPAY ==
[2023-06-10 16:06] LABS: HCT 49.1 % (40.0-50.0); HGB 16.6 g/dL (13.5-17.5); MCH 33.9 pg (27.0-33.0); MCHC 33.8 % (32.0-36.0); MCV 100 fL (80-95); MPV 11.6 fL (8.0-11.0); Platelet Count 287 10^3/uL (130-400); RDW 12.8 % (11.8-14.1); RDW-SD 47.7 fL; WBC 8.05 10^3/uL (4.4-10.8)
[2023-06-10 16:15] LABS: Prothrombin Time 10.4 sec (9.1-11.1)
[2023-06-10 16:23] LABS: ALT 25 U/L (16-63); AST 21 U/L (15-37); Alkaline Phosphatase 99 U/L (46-116); Anion Gap 8.4 mmol/L (3-11); BUN 13 mg/dL (7-18); Bilirubin, Total 0.5 mg/dL (0.2-1.0); CO2 26.6 mmol/L (21.0-32.0); Calcium 9.8 mg/dL (8.5-10.1); Chloride 103 mmol/L (98-107); Estimated GFR 79.97 (mL/min/1.73m2); Glucose 91 mg/dL (74-106); Potassium 4.8 mmol/L (3.5-5.1); Sodium 138 mmol/L (136-145); Total Protein 8.1 g/dL (6.4-8.2)
== END 2023-06-10 16:18 | disposition home or self-care (01) ==
LOC: NCHCN 16:17
PROVIDERS: PCP Family Medicine; Visit Provider Family Medicine
DX: R42 Dizziness and giddiness (principal); K74.60 Unspecified cirrhosis of liver
CPT/HCPCS: 80053; 85027; 85610

== ENCOUNTER → 2023-07-23 01:25 | Outpatient (CLI) | payer MEDICARE, SELFPAY ==
--- NOTE | 2023-07-23 | DI.US_ITS ---
Exam(s) US ABDOMEN LIMITED EXAM: US ABDOMEN LIMITED CLINICAL HISTORY: CIRRHOSIS OF LIVER K74.60 TECHNIQUE: Ultrasound abdomen performed using standard protocol. COMPARISON: CT UPPER ABD W/WO CONTRAST(P) from 08/29/[address] CHEST LUNG CANCER SCREEN from 08/29/2021 US US ABDOMEN LIMITED from 04/26/[address] CHEST LUNG CANCER SCREEN from 08/30/2022 FINDINGS: There is no ascites evident. LIVER: No obvious focal abnormality in the liver. However, just below the right hepatic lobe and abov e the right kidney there is a finding which may be an enlarged adrenal gland. GALLBLADDER/BILIARY: No mobile gallstones but there is a gallbladder polyp noted measuring 4 x 3.5 mm . The common hepatic duct isnot dilated, measuring 4mm at the level of yamel hepatis. PANCREAS: There is no evidence of pancreatic mass nor dilatation of the pancreatic duct. Pancreatic tail was not completely visualized due to bowel gas. RIGHT KIDNEY:No evidence of solid mass, calculus, nor hydronephrosis. No cortical cysts evident. IMPRESSION: 1. Gallbladder polyps again noted 2. No discrete focal hepatic lesions but there does appear to be a finding interposed between the li jeanne and right kidney measuring approximately 4.5 x 4.4 cm. There is possibly that this is a finding e xophytic off the right hepatic lobe or solid GE of the right adrenal gland. Recommend follow-up CT sc an 3. There is no ascites. DATA REPOSITORY:
== END ==
PROVIDERS: PCP Family Medicine; Visit Provider Family Medicine
DX: K74.60 Unspecified cirrhosis of liver (principal); K82.4 Cholesterolosis of gallbladder
CPT/HCPCS: 76705

== ENCOUNTER → 2023-08-05 00:56 | Outpatient (CLI) | payer MEDICARE, SELFPAY ==
[2023-08-05] MEDS: Normal Saline - Diluent 50 ML VIAL IJ (15:24)
[2023-08-05] MEDS: Omnipaque 350 MG/ML 500 ML BTL-Imaging package 100 ML IJ (15:24)
[2023-08-05] MEDS: Barium Sulfate 2% W/V-Creamy Vanilla Smoothie 450 ML BTL 900 ML PO (15:30)
--- NOTE | 2023-08-05 15:45 | DI.CT_ITS ---
Exam(s) CT ABDOMEN PELVIS W EXAM: CT ABDOMEN PELVIS W CLINICAL HISTORY: ABD SWELLING/MASS R19.00 BETWEEN LIVER/KIDNEY/ADRENAL ON HCC SCREEN. TECHNIQUE: Imaging Protocol: Axial computed tomography images with coronal and sagittal reformatted images were created and reviewed CONTRAST MATERIAL: Intravenous: Omnipaque-350 100cc Oral: Yes. Oral contrast was also administered for bowel opacification. COMPARISON: CT UPPER ABD W/WO CONTRAST(P) from 08/29/2011 US US ABDOMEN LIMITED from 07/23/2023 FINDINGS: VISUALIZED LUNG BASES: No nodules nor pleural effusions evident. ABDOMEN: There is no ascites. Small hiatal hernia noted. LIVER: There are no focal hepatic lesions evident. There is no abnormal finding between the right ki dney and liver and the ipsilateral Gemma gland appears unremarkable. The fecal filled colon is evide nt in this region on I suspect that this is what was visualized on ultrasound and probably did not ex hibit peristalsis because of the abundant amount of fecal material in the lumen of the colon at that time. GALLBLADDER/BILIARY: No obvious gallbladder pathology. CBD is not dilated. PANCREAS: No evidence of pancreatic mass nor dilatation of the pancreatic duct. There is a single ti ny parenchymal calcification in the pancreatic head measuring approximately 1 mm. There is no associ ated mass. SPLEEN: Spleen is not enlarged. No obvious intrasplenic lesions. Splenic and portal veins are paten t. ADRENALS: There are no significant adrenal masses. KIDNEYS:No cysts evident. No solid renal masses. No calculi nor hydronephrosis.. ABDOMINAL AORTA: The abdominal aorta is peripherally calcified but not enlarged. Common iliac arteri es are also calcified but not enlarged. LYMPH NODES:There is no retroperitoneal nor paraaortic adenopathy. ABDOMINAL WALL: No evidence of significant anterior abdominal wall nor inguinal hernia. GI: There is no evidence of bowel obstruction, free air, nor abscess. PELVIS: GI: No evidence of appendicitis.There is sigmoid diverticuli but no evidence of acute diverticulitis. LYMPH NODES: There is no intrapelvic nor inguinal adenopathy. REPRODUCTIVE: Prostate size is mildly enlarged.. Contains calcification. URINARY BLADDER: Uniform thickening of the urinary bladder wall is either due to mild under distensio n or chronic cystitis. There are no calcifications in the urinary bladder. Pelvic ureters are not d ilated. OSSEOUS: No fractures and no significant osseous lesions. IMPRESSION: 1. There is no evidence of significant mass to correspond to what was discussed on the recent ultraso und report. What was probably seen on ultrasound was the fecal filled colon which did not exhibit pe ristalsis during scanning because of the large amount of fecal material therein. The right adrenal g land also appears unremarkable. 2. There is sigmoid diverticuli without evidence of obvious acute diverticulitis. 3. There is uniform thickening of the urinary bladder wall which is probably related to chronic cysti tis. Prostate side is mildly enlarged 4. RADIATION DOSE DELIVERED: Total DLP DATA REPOSITORY: All CT scans at this facility are submitted to the National Radiology Data Registry (NRDR) Dose Index Registry (DIR) with the [employer] (ACR). RADIATION OPTIMIZATION: All CT scans at this facility use at least one of these dose optimization te chniques: automated exposure control; mA and/or kV adjustment per patient size (includes targeted exa ms where dose is matched to clinical indication); or iterative reconstruction.
== END ==
PROVIDERS: PCP Family Medicine; Visit Provider Family Medicine
DX: R19.09 Other intra-abdominal and pelvic swelling, mass and lump (principal)
CPT/HCPCS: 74177

== ENCOUNTER 2024-01-07 15:52 | Outpatient (REF) | payer MEDICARE, SELFPAY ==
[2024-01-07 18:48] LABS: Abs Immature Grans 0.02 10^3/uL (0.0-0.06); Absolute Basophil Count 0.04 10^3/uL (0.0-0.2); Absolute Eosinophil Count 0.28 10^3/uL (0.0-0.7); Absolute Lymphocyte Count 1.65 10^3/uL (1.2-3.4); Absolute Monocyte Count 0.85 10^3/uL (0.1-0.8); Absolute Neutrophil Count 4.73 10^3/uL (1.2-6.7); Basophils % 0.5 %; Eosinophils % 3.7 %; HCT 45.8 % (40.0-50.0); HGB 15.6 g/dL (13.5-17.5); Immature Grans % 0.3 %; Lymphocytes % 21.8 %; MCH 34.9 pg (27.0-33.0); MCHC 34.1 % (32.0-36.0); MCV 103 fL (80-95); MPV 11.4 fL (8.0-11.0); Monocytes % 11.2 %; Neutrophils % 62.5 %; Platelet Count 238 10^3/uL (130-400); RBC 4.47 10^6/uL (4.36-5.78); RDW 12.7 % (11.8-14.1); RDW-SD 47.9 fL; WBC 7.57 10^3/uL (4.4-10.8)
[2024-01-07 19:02] LABS: ALT 25 U/L (16-63); AST 25 U/L (15-37); Albumin 3.9 g/dL (3.4-5.0); Alkaline Phosphatase 87 U/L (46-116); Anion Gap 10.2 mmol/L (3-11); BUN 12 mg/dL (7-18); Bilirubin, Total 0.6 mg/dL (0.2-1.0); CO2 23.8 mmol/L (21.0-32.0); CREATININE 0.8 mg/dL (0.70-1.30); Calcium 9.2 mg/dL (8.5-10.1); Chloride 104 mmol/L (98-107); Estimated GFR 94.03 (mL/min/1.73m2); Glucose 94 mg/dL (74-106); Potassium 4.3 mmol/L (3.5-5.1); Sodium 138 mmol/L (136-145); Total Protein 7.6 g/dL (6.4-8.2)
== END 2024-01-07 15:53 | disposition home or self-care (01) ==
LOC: NCHCN 15:52
PROVIDERS: PCP Family Medicine; Visit Provider Student in an Organized Health Care Education/Training Program
DX: I10 Essential (primary) hypertension (principal)
CPT/HCPCS: 80053; 85025

== ENCOUNTER → 2024-01-22 03:46 | Outpatient (CLI) | payer MEDICARE, SELFPAY ==
--- NOTE | 2024-01-22 13:37 | DI.CTLCSR_ITS ---
Exam(s) CT CHEST LUNG CANCER SCREEN EXAM: CT CHEST LUNG CANCER SCREEN CLINICAL HISTORY: NICOTINE DEPENDENCE F17.210 SCREENING FOR LUNG CANCER. TECHNIQUE: Imaging Protocol: Low Dose Technique CONTRAST MATERIAL: None COMPARISON: CT CT CHEST LUNG CANCER SCREEN from 08/30/2022 FINDINGS: CHEST: LUNGS: Emphysematous changes again noted throughout both lung thayer.. There are no confluent infilt rates. Small fissure adjacent nodule in the right lung is unchanged. Another peripherally located n odule in the right middle lobe is also unchanged measuring 3 mm. Mild atelectasis in the right lower lobe posterior basal segment noted. Tiny granuloma in the posterior basal segment of the right lowe r lobe is also unchanged. In the opposite-left lung no significant nodules. Pleural effusions on either side MEDIASTINUM: There is no obvious hilar nor mediastinal adenopathy. CARDIAC: Heart size is normal. There is no pericardial effusion.Caliber of the thoracic aorta is wit hin normal limits. OTHER: OSSEOUS: T3 compression fracture appears unchanged from prior study of 08/30/2022. No new fractures identified.. IMPRESSION: 1. Stable small right lung nodules. No new lung nodules. No infiltrates nor pleural effusions. 2. T3 vertebral body compression fracture unchanged from 08/30/2022 3. Lung RADS Cat 2 - Benign Appearance / Behavior: Nodules with a very low likelihood of becoming a c linically active cancer due to size or lack of growth Lung-RADS 1.0 CATEGORIES: Category 0 - Prior chest CT exam(s) being located for comparison. Category 1 - Annual screening in 12 months. No nodules or definitely benign nodules. Category 2 - Annual screening in 12 months. Benign appearance. Nodules with low likelihood of becomin g active cancer. Category 3 - 6-month follow-up. Probably benign. Short-term follow-up suggested. Nodules with low lik elihood of becoming active cancer. Category 4A - 3-month follow-up and CT/PET if >8 mm in size. Suspicious finding. Findings which requi re additional testing. Category 4B - Findings which require additional testing and tissue sampling. Category 4X - Category 3 or 4 nodules with additional features or imaging findings that increases the suspicion of malignancy. Modifier S- Potentially clinically significant findings (non lung cancer) RADIATION DOSE DELIVERED: 77.51mGy.cm Total DLP DATA REPOSITORY: All CT scans at this facility are submitted to the National Radiology Data Registry (NRDR) Dose Index Registry (DIR) with the [employer] (ACR). RADIATION OPTIMIZATION: All CT scans at this facility use at least one of these dose optimization te chniques: automated exposure control; mA and/or kV adjustment per patient size (includes targeted exa ms where dose is matched to clinical indication); or iterative reconstruction.
== END ==
PROVIDERS: PCP Family Medicine; Visit Provider Student in an Organized Health Care Education/Training Program
DX: F17.210 Nicotine dependence, cigarettes, uncomplicated (principal); Z12.2 Encounter for screening for malignant neoplasm of respiratory organs; R91.1 Solitary pulmonary nodule
CPT/HCPCS: 71271